=== PATIENT | female | born 1930 | race Caucasian/White ===

== ENCOUNTER → 2017-03-29 | Outpatient (CLI) | payer MEDICARE ==
[2017-03-29 09:45] LABS: AUTOMATED NEUTROPHIL # 2.8 TH/MM3 (1.8-7.7); BASOPHIL % 0.7 % (0.0-2.0); EOSINOPHIL # 0.3 TH/MM3 (0-0.4); EOSINOPHIL % 4.8 % (0.0-4.0); HEMATOCRIT 44.6 % (35.0-46.0); HEMO FLAGS DIFF FINAL; LYMPH % 34.5 % (9.0-44.0); LYMPHOCYTE # 1.9 TH/MM3 (1.0-4.8); MEAN CELL VOLUME 96.5 FL (80.0-100.0); MEAN CORPUSCULAR HEMOGLOBIN 32.4 PG (27.0-34.0); MEAN CORPUSCULAR HGB CONC 33.5 % (32.0-36.0); MONO % 8.6 % (0.0-8.0); NEUT % 51.4 % (16.0-70.0); PLATELET COUNT 144 TH/MM3 (150-450); RED BLOOD COUNT 4.62 MIL/MM3 (4.00-5.30); WHITE BLOOD COUNT 5.4 TH/MM3 (4.0-11.0)
[2017-03-29 10:12] LABS: ANION GAP 7 MEQ/L (5-15); AST (GOT) 18 U/L (15-37); BICARBONATE 27.7 MEQ/L (21.0-32.0); BLOOD UREA NITROGEN 13 MG/DL (7-18); CHLORIDE 106 MEQ/L (98-107); GLOMERULAR FILTRATION RATE 64 ML/MIN (>89); GLUCOSE,FASTING 113 MG/DL (74-99); SODIUM (NA) 141 MEQ/L (136-145)
[2017-03-29 10:24] LABS: ALKALINE PHOSPHATASE 94 U/L (45-117); ALT (GPT) 19 U/L (10-53); HDL CHOLESTEROL 68.2 MG/DL (40.0-60.0); LDL CHOLESTEROL 73 MG/DL (0-99); TOTAL BILIRUBIN ADULT 0.8 MG/DL (0.2-1.0)
== END ==
LOC: PLAB 07:08
PROVIDERS: ATTEND Family Medicine
DX: I48.91 Unspecified atrial fibrillation (principal); E78.5 Hyperlipidemia, unspecified; E03.9 Hypothyroidism, unspecified; I10 Essential (primary) hypertension
CPT/HCPCS: 36415; 80053; 80061; 84443; 85025

== ENCOUNTER → 2017-09-28 | Outpatient (CLI) | payer MEDICARE | LOC: PLAB 14:36 | PROVIDERS: ATTEND Family Medicine | DX: R31.9 Hematuria, unspecified (principal) | CPT/HCPCS: 87086 ==

== ENCOUNTER → 2017-09-29 | Outpatient (CLI) | payer MEDICARE ==
[2017-09-29 10:06] LABS: AUTOMATED NEUTROPHIL # 2.2 TH/MM3 (1.8-7.7); BASOPHIL % 0.8 % (0.0-2.0); EOSINOPHIL # 0.3 TH/MM3 (0-0.4); EOSINOPHIL % 5.7 % (0.0-4.0); HEMATOCRIT 43.6 % (35.0-46.0); HEMOGLOBIN 14.7 GM/DL (11.6-15.3); LYMPH % 39.7 % (9.0-44.0); MEAN CELL VOLUME 95.7 FL (80.0-100.0); MEAN CORPUSCULAR HEMOGLOBIN 32.3 PG (27.0-34.0); MEAN CORPUSCULAR HGB CONC 33.8 % (32.0-36.0); MEAN PLATELET VOLUME 10.9 FL (7.0-11.0); MONO % 9.8 % (0.0-8.0); MONOCYTE # 0.5 TH/MM3 (0-0.9); PLATELET COUNT 155 TH/MM3 (150-450); RED BLOOD COUNT 4.55 MIL/MM3 (4.00-5.30); RED CELL DISTRIBUTION WIDTH 13.6 % (11.6-17.2); WHITE BLOOD COUNT 4.9 TH/MM3 (4.0-11.0)
[2017-09-29 10:11] LABS: ALBUMIN 3.6 GM/DL (3.4-5.0); AST (GOT) 19 U/L (15-37); BICARBONATE 29.9 MEQ/L (21.0-32.0); BLOOD UREA NITROGEN 14 MG/DL (7-18); CHLORIDE 110 MEQ/L (98-107); CHOLESTEROL 185 MG/DL (120-200); GLOMERULAR FILTRATION RATE 59 ML/MIN (>89); GLUCOSE,FASTING 100 MG/DL (74-99); SODIUM (NA) 145 MEQ/L (136-145)
[2017-09-29 10:22] LABS: ALKALINE PHOSPHATASE 87 U/L (45-117); ALT (GPT) 20 U/L (10-53); CHOLESTEROL/ HDL RATIO 2.89 RATIO; HDL CHOLESTEROL 63.8 MG/DL (40.0-60.0); LDL CHOLESTEROL 96 MG/DL (0-99); TOTAL PROTEIN 6.9 GM/DL (6.4-8.2); TRIGLYCERIDES 128 MG/DL (42-150)
== END ==
LOC: PLAB 06:52
PROVIDERS: ATTEND Family Medicine
DX: I10 Essential (primary) hypertension (principal); E03.9 Hypothyroidism, unspecified; E78.2 Mixed hyperlipidemia; I48.91 Unspecified atrial fibrillation
CPT/HCPCS: 36415; 80053; 80061; 84443; 85025

== ENCOUNTER 2017-11-24 01:25 | Inpatient (IN) | payer MEDICARE ==
[~2017-11-24] VITALS: Ht 180.3 cm; Wt 79.0 kg
[2017-11-24] VITALS (10 sets, daily range): BP systolic 110–177; BP diastolic 66–94; PULSE 69–106; RESP 17–18; TEMP 98.2–99.1; O2SAT 92–99
[2017-11-24 02:08] LABS: AUTOMATED NEUTROPHIL # 3.3 TH/MM3 (1.8-7.7); BASOPHIL # 0.1 TH/MM3 (0-0.2); BASOPHIL % 0.8 % (0.0-2.0); EOSINOPHIL # 0.3 TH/MM3 (0-0.4); EOSINOPHIL % 3.8 % (0.0-4.0); HEMATOCRIT 40.6 % (35.0-46.0); HEMOGLOBIN 13.9 GM/DL (11.6-15.3); LYMPH % 41.1 % (9.0-44.0); LYMPHOCYTE # 2.9 TH/MM3 (1.0-4.8); MEAN CORPUSCULAR HEMOGLOBIN 32.5 PG (27.0-34.0); MEAN CORPUSCULAR HGB CONC 34.2 % (32.0-36.0); MEAN PLATELET VOLUME 10.5 FL (7.0-11.0); MONO % 7.4 % (0.0-8.0); MONOCYTE # 0.5 TH/MM3 (0-0.9); NEUT % 46.9 % (16.0-70.0); PLATELET COUNT 130 TH/MM3 (150-450); RED BLOOD COUNT 4.27 MIL/MM3 (4.00-5.30); RED CELL DISTRIBUTION WIDTH 13.3 % (11.6-17.2); WHITE BLOOD COUNT 7.1 TH/MM3 (4.0-11.0)
[2017-11-24 02:17] LABS: INTERNATIONAL NORMALIZED RATIO 2.7 RATIO; PROTHROMBIN TIME - PATIENT 27.6 SEC (9.8-11.6)
[2017-11-24 02:20] LABS: BICARBONATE 26.6 MEQ/L (21.0-32.0); BLOOD UREA NITROGEN 15 MG/DL (7-18); CALCIUM 8.4 MG/DL (8.5-10.1); CHLORIDE 110 MEQ/L (98-107); CREATININE 0.87 MG/DL (0.50-1.00); GLOMERULAR FILTRATION RATE 62 ML/MIN (>89); GLUCOSE,RANDOM 120 MG/DL (74-106); SODIUM (NA) 145 MEQ/L (136-145)
--- NOTE | 2017-11-24 02:21 | RADRPT ---
EXAM DATE: 11/24/2017 2:14 AM EDT AGE/SEX: 87 years / Female INDICATIONS: Fall in kitchen landed on left hip. CLINICAL DATA: This is the patient's initial encounter. Patient reports that signs and symptoms have been present for 1 day and indicates a pain score of 10/10. MEDICAL/SURGICAL HISTORY: None. None. COMPARISON: No prior exams available for comparison. FINDINGS: 4 views of the left hip and pelvis. Impacted left femoral neck fracture. Hip joint alignment within n ormal limits. Mild osteoarthritic findings of the hips. CONCLUSION: Impacted left femoral neck fracture. Electronically signed by: Noe Gibson MD 11/24/2017 2:20 AM EDT
--- NOTE | 2017-11-24 02:21 | PD ---
HPI Chief Complaint: Fall Time Seen by Provider: 01:40 Travel History International Travel<30 days: No Contact w/Intl Traveler<30days: No Traveled to known affect area: No History of Present Illness HPI The patient is an 87 year old female who presents to the [facility] emergency department with a history of left hip pain that began after the patient slipped and fell returning from the bathroom. She reports that she slipped on the floor. She reports that she landed on her buttock area. She reports that she was unable to get up and have left hip pain. She denies hitting her head or losing consciousness. She is on Coumadin for an irregular heartbeat. She denies having any numbness or tingling to her extremities. She denies having any weakness of her extremities. On review of systems otherwise, the patient denies having any fevers, cough or congestion, neck pain, chest pain , shortness of breath, abdominal pain, vomiting, diarrhea, urinary symptoms, or neurologic symptoms. The patient denies having any other injuries related to the fall [facility] Past Medical History Narrative Medical The patient's past medical history is significant for atrial fibrillation, hypothyroid disorder, hypertension, diminished hearing, dyslipidemia. Atrial Fibrillation: Yes Diminished Hearing: Yes Hypertension: Yes Thyroid Disease: Yes Triglycerides - High: Yes Past Surgical History Narrative Surgical The patient's past surgical history is significant for a hysterectomy and tonsillectomy. Social History Alcohol Use: No Tobacco Use: No Substance Use: No Allergies-Medications (Allergen,Severity, Reaction): Coded Allergies: Sulfa (Sulfonamide Antibiotics) (Verified Allergy, Severe, 11/24/17) Reported Meds & Prescriptions Reported Meds & Active Scripts Active Reported Lovastatin 40 Mg Tab 40 Mg PO DAILY Levothyroxine (Levothyroxine Sodium) 100 Mcg Tab 100 Mcg PO DAILY Coumadin (Warfarin) 2.5 Mg Tab 2.5 Mg PO DAILY Metoprolol Tartrate 25 Mg Tab 25 Mg PO BID Review of Systems Except as stated in HPI: all other systems reviewed are Neg General / Constitutional: No: Fever Eyes: No: Visual changes HENT: No: Headaches Cardiovascular: No: Chest Pain or Discomfort Respiratory: No: Shortness of Breath Gastrointestinal: No: Abdominal Pain Genitourinary: No: Dysuria Musculoskeletal: Positive: Arthralgias, Limited ROM, Pain Skin: No Rash Neurologic: No: Weakness Psychiatric: No: Depression Endocrine: No: Polydipsia Hematologic/Lymphatic: No: Easy Bruising Physical Exam Narrative General: The patient is a well-developed well-nourished female in no acute distress. Head and Neck exam: Head is normocephalic atraumatic. Eyes: EOMI, pupils are equal round and reactive to light. Nose: Midline septum with pink mucous membranes Mouth: Dentition unremarkable. Moist mucus membranes. Posterior oropharynx is not erythematous. No tonsillar hypertrophy. Uvula midline. Airway patent. Neck: No palpable lymphadenopathy. No nuchal rigidity. No thyromegaly. Cardiovascular: Irregularly irregular with rate control in the 80s consistent with her history of atrial fibrillation without murmurs, gallops, or rubs. Lungs: Clear to auscultation bilaterally. No wheezes, rhonchi, or rales. Abdomen: Soft, without tenderness to palpation in all 4 quadrants of the abdomen. No guarding, rebound, or rigidity. Normal bowel sounds are audible. No tenderness on palpation of McBurney's point. Extremities: No clubbing, cyanosis, or edema. 2+ pulses in all 4 extremities. The area of interest is the left hip. The patient has external rotation and slight shortening noted. The patient has pain with any attempts at flexion or rotation of the left hip. The patient has no other extremity pain on palpation or with active range of motion. The patient has no other crepitus or deformity. Back: No spinous process tenderness to palpation. No costovertebral angle tenderness to palpation. Neurologic Exam: Grossly nonfocal. Skin Exam: No rash noted. Intact skin that is warm and dry. Data Data Last Documented VS Vital Signs Date Time Temp Pulse Resp B/P (MAP) Pulse Ox O2 Delivery O2 Flow Rate FiO2 11/24/17 02:02 Room Air 11/24/17 01:32 98.2 69 18 177/66 (103) Orders Orders Electrocardiogram (11/24/17 01:43) Complete Blood Count With Diff (11/24/17 01:43) Basic Metabolic Panel (Bmp) (11/24/17 01:43) Creatine Kinase (Cpk) (11/24/17 01:43) Ckmb (Isoenzyme) Profile (11/24/17 01:43) Troponin I (11/24/17 01:43) Prothrombin Time / Inr (Pt) (11/24/17 01:43) Act Partial Throm Time (Ptt) (11/24/17 01:43) Chest, Single Ap (11/24/17 01:43) Ct Brain W/O Iv Contrast(Rout) (11/24/17 01:43) Iv Access Insert/Monitor (11/24/17 01:43) Ecg Monitoring (11/24/17 01:43) Oximetry (11/24/17 01:43) Ct Cerv Spine W/O Contrast (11/24/17 01:43) Hip, Uni(Ap&Lat) W Ap Pelvis (11/24/17 ) Consult Orthopedic (11/24/17 ) Admit To Inpatient (11/24/17 ) Vital Signs (Adult) Q4H (11/24/17 02:59) Activity Bed Rest (11/24/17 02:59) Diet Npo (11/24/17 Breakfast) Sodium Chlor 0.9% 1000 Ml Inj (Ns 1000 M (11/24/17 02:59) Sodium Chloride 0.9% Flush (Ns Flush) (11/24/17 03:00) Sodium Chloride 0.9% Flush (Ns Flush) (11/24/17 09:00) Acetaminophen (Tylenol) (11/24/17 03:00) Basic Metabolic Panel (Bmp) (11/25/17 06:00) Complete Blood Count With Diff (11/25/17 06:00) Pt Request For Service (11/24/17 02:59) Naloxone Inj (Narcan Inj) (11/24/17 03:00) Docusate Sodium-Senna (Anne-Colace) (11/24/17 09:00) Magnesium Hydroxide Liq (Milk Of Magnesi (11/24/17 03:00) Sennosides (Senokot) (11/24/17 03:00) Bisacodyl Supp (Dulcolax Supp) (11/24/17 03:00) Lactulose Liq (Lactulose Liq) (11/24/17 03:00) Inpatient Certification (11/24/17 ) Labs Laboratory Tests Test 11/24/17 01:54 White Blood Count 7.1 TH/MM3 Red Blood Count 4.27 MIL/MM3 Hemoglobin 13.9 GM/DL Hematocrit 40.6 % Mean Corpuscular Volume 95.0 FL Mean Corpuscular Hemoglobin 32.5 PG Mean Corpuscular Hemoglobin Concent 34.2 % Red Cell Distribution Width 13.3 % Platelet Count 130 TH/MM3 Mean Platelet Volume 10.5 FL Neutrophils (%) (Auto) 46.9 % Lymphocytes (%) (Auto) 41.1 % Monocytes (%) (Auto) 7.4 % Eosinophils (%) (Auto) 3.8 % Basophils (%) (Auto) 0.8 % Neutrophils # (Auto) 3.3 TH/MM3 Lymphocytes # (Auto) 2.9 TH/MM3 Monocytes # (Auto) 0.5 TH/MM3 Eosinophils # (Auto) 0.3 TH/MM3 Basophils # (Auto) 0.1 TH/MM3 CBC Comment DIFF FINAL Differential Comment Prothrombin Time 27.6 SEC Prothromb Time International Ratio 2.7 RATIO Activated Partial Thromboplast Time 31.0 SEC Blood Urea Nitrogen 15 MG/DL Creatinine 0.87 MG/DL Random Glucose 120 MG/DL Calcium Level 8.4 MG/DL Sodium Level 145 MEQ/L Potassium Level 3.8 MEQ/L Chloride Level 110 MEQ/L Carbon Dioxide Level 26.6 MEQ/L Anion Gap 8 MEQ/L Estimat Glomerular Filtration Rate 62 ML/MIN Total Creatine Kinase 61 U/L Troponin I LESS THAN 0.02 NG/ML MDM Medical Decision Making Medical Screen Exam Complete: Yes Emergency Medical Condition: Yes Medical Record Reviewed: Yes Differential Diagnosis Left hip fracture, versus dislocation, versus contusion Narrative Course During the course of the patient's emergency department visit, the patient's history, examination, and differential diagnosis were reviewed with the patient. The patient was placed on a cardiac rehabilitation program director with oximetry and frequent blood pressure monitoring. The patient had IV access obtained and blood work sent for analysis. The patient had an EKG done on arrival. The patient's EKG shows atrial fibrillation heart rate of 78, QRS duration 91 ms, QTC [address] segment elevation. The patient was initially provided morphine for pain, Reglan for nausea. The patient's laboratory studies were reviewed and remarkable for 11/24/17 01:54 Calcium Level 8.4 L The patient's INR is 2.7. The patient is anticoagulated related to a history of chronic atrial fibrillation. Radiology studies were reviewed and remarkable for Last Impressions Head CT 6/13/18 0143 Signed Impressions: CONCLUSION: 1. No acute intracranial findings. 2. Diffuse atrophy and chronic ischemic change. Chest X-Ray 11/24/17142 Signed Impressions: CONCLUSION: No acute cardiopulmonary disease identified. Cervical Spine CT 11/24/17142 Signed Impressions: CONCLUSION: 1. No evidence of fracture. 2. Prominent multilevel degenerative findings. Hip and Pelvis X-Ray 11/24/17 0000 Signed Impressions: CONCLUSION: Impacted left femoral neck fracture. The patient will be admitted to the hospital for a slip and a fall with resultant impacted left femoral neck fracture. The patient's results were discussed with the patient, including the plan of care. I explained that further testing and/ or monitoring is indicated based on the patient's history, examination, and/ or laboratory findings. Therefore, I recommended admission for additional evaluation. The patient expressed understanding and was agreeable with this plan. The patient was admitted to the hospital in stable condition and sent to a bed under the care of [facility]. Physician Communication Physician Communication The patient's case including history, pertinent physical examination findings, and laboratory studies were discussed with Dr. Mccloud. It was [facility] Diagnosis Primary Impression: Femoral neck fracture Qualified Codes: S72.002A - Fracture of unspecified part of neck of left femur , initial encounter for closed fracture Admitting Information Admitting Physician Requests: Admit Yamilka Lombardo MD Nov 24, 2017 02:21
[2017-11-24 02:23] LABS: TROPONIN I LESS THAN 0.02 NG/ML (0.02-0.05)
--- NOTE | 2017-11-24 02:27 | RADRPT ---
EXAM DATE: 11/24/2017 2:15 AM EDT AGE/SEX: 87 years / Female INDICATIONS: Fall, evaluate for pneumonia, pneumothorax and or communicable disease. CLINICAL DATA: This is the patient's initial encounter. Patient reports that signs and symptoms have been present for 1 day and indicates a pain score of 10/10. MEDICAL/SURGICAL HISTORY: None. None. COMPARISON: No prior exams available for comparison. FINDINGS: Single AP view of the chest. The lungs are clear. Cardiomediastinal silhouette within nor mal limits. No evidence of pleural effusion or pneumothorax. CONCLUSION: No acute cardiopulmonary disease identified. Electronically signed by: Noe Gibson MD 11/24/2017 2:26 AM EDT
--- NOTE | 2017-11-24 02:34 | RADRPT ---
EXAM DATE: 11/24/2017 2:23 AM EDT AGE/SEX: 87 years / Female INDICATIONS: Trauma; fall. CLINICAL DATA: This is the patient's initial encounter. Patient reports that signs and symptoms have been present for 1 day and indicates a pain score of 4/10. MEDICAL/SURGICAL HISTORY: None. None. RADIATION DOSE: 21.05 CTDI (mGy) COMPARISON: No prior exams available for comparison. TECHNIQUE: Contiguous axial images were obtained using helical multirow detector technique. The vol umetric data was post-processed with multiplanar reconstruction in oblique axial, sagittal, and coron al planes. Using automated exposure control and adjustment of the mA and/or kV according to patient s ize, radiation dose was kept as low as reasonably achievable to obtain optimal diagnostic quality aries ges. FINDINGS: Vertebrae: Normal vertebral body height. Alignment: Normal. No subluxation. C2-3: Broad-based disc osteophyte complex and prominent left-sided facet arthrosis. Mild left neural foraminal narrowing. Central canal diameter within normal limits. C3-4: Broad-based disc osteophyte complex and bilateral facet arthrosis. Moderate left neural forami nal narrowing. Minimal central canal narrowing. C4-5: Broad-based disc osteophyte complex and bilateral facet arthrosis. Moderate right and mild lef t neural foraminal narrowing. Mild to moderate central canal narrowing. C5-6: Broad-based disc osteophyte complex and bilateral facet arthrosis. Moderate bilateral neural f oraminal narrowing. Mild central canal narrowing. C6-7: Broad-based disc osteophyte complex and bilateral facet arthrosis. Mild bilateral neural ariana inal narrowing. Central canal diameter within normal limits. C7-T1: Central canal diameter within normal limits. Neural foraminal diameters within normal limits. CONCLUSION: 1. No evidence of fracture. 2. Prominent multilevel degenerative findings. Electronically signed by: Noe Gibson MD 11/24/2017 2:33 AM EDT
--- NOTE | 2017-11-24 02:37 | RADRPT ---
EXAM DATE: 11/24/2017 2:15 AM EDT AGE/SEX: 87 years / Female INDICATIONS: Trauma; fall. CLINICAL DATA: This is the patient's initial encounter. Patient reports that signs and symptoms have been present for 1 day and indicates a pain score of 2/10. MEDICAL/SURGICAL HISTORY: None. None. RADIATION DOSE: 56.35 CTDI (mGy) COMPARISON: No prior exams available for comparison. TECHNIQUE: CT of the head without contrast. Using automated exposure control and adjustment of the mA and/or kV according to patient size, radiation dose was kept as low as reasonably achievable to ob tain optimal diagnostic quality images. FINDINGS: Cerebrum: The ventricles, sulci, and cisterns are diffusely prominent indicating diffuse atrophy. Ch ronic small vessel white matter ischemic change also noted. No evidence of midline shift, mass lesio n, hemorrhage or acute infarction. No extraaxial fluid collections are seen. Posterior Fossa: The cerebellum and brainstem are intact. The 4th ventricle is midline. The cerebe llopontine angle is unremarkable. Extracranial: The visualized portion of the orbits is intact. Skull: The calvaria is intact. No evidence of skull fracture. CONCLUSION: 1. No acute intracranial findings. 2. Diffuse atrophy and chronic ischemic change. Electronically signed by: Noe Gibson MD 11/24/2017 2:36 AM EDT
[2017-11-24] MEDS ORDERED: SODIUM CHLORIDE 0.9% FLUSH 10 ML FLUSH IV FLUSH PRN (03:00)
[2017-11-24] MEDS ORDERED: LACTULOSE SYRUP 20 GM/30 ML CUP PO PRN (03:00)
[2017-11-24] MEDS ORDERED: SENNOSIDES 8.6 MG TAB PO PRN (03:00)
[2017-11-24] MEDS ORDERED: MAGNESIUM HYDROXIDE SUSP 30 ML CUP PO PRN (03:00)
[2017-11-24] MEDS ORDERED: NALOXONE HCL 0.4 MG/ML AMP IV PUSH PRN (03:00)
[2017-11-24] MEDS ORDERED: ACETAMINOPHEN 325 MG TAB PO PRN (03:00)
[2017-11-24] MEDS ORDERED: BISACODYL 10 MG SUPP RECTAL PRN (03:00)
[2017-11-24] MEDS ORDERED: COUM2.5T PO (03:04)
[2017-11-24] MEDS ORDERED: METO25TA3 PO (03:04)
[2017-11-24] MEDS ORDERED: LEVO100T5 PO (03:04)
[2017-11-24] MEDS ORDERED: LOVA40TA PO (03:04)
[2017-11-24] MEDS ORDERED: MORPHINE SULFATE 4 MG/ML INJ IV PUSH ONE (03:15)
[2017-11-24] MEDS ORDERED: METOCLOPRAMIDE HCL 10 MG/2 ML VIAL IV PUSH ONE (03:15)
[2017-11-24] MEDS: SODIUM CHLOR 0.9% 1000 ML INJ 1,000 ML IV SCH ×2 (03:52→17:29)
[2017-11-24] MEDS ORDERED: SODIUM CHLOR 0.9% 250 ML INJ 250 ML IV ONE (07:45)
--- NOTE | 2017-11-24 07:58 | HHI.HP ---
[facility] Service [facility] Primary Care Physician Rosemary Ellis MD Admission Diagnosis Left hip fracture s/p slip and fall Diagnoses: Chief Complaint: Left hip fracture, status post fall Travel History International Travel<30 Days: No Contact w/Intl Traveler <30 Da: No Traveled to Known Affected Are: No History of Present Illness Patient is an 87-year-old female with past medical history of atrial fibrillation on Coumadin, hypothyroidism, HTN, HLD who came into the hospital status post slip and fall coming out of the bathroom. Patient denies hitting her head, or any loss of consciousness. Patient found to have impacted left femoral neck fracture on the x-ray. Patient is due for OR procedure, however her INR is elevated at 2.7. Patient seen and examined today. Reports she is doing well. States she has no pain or discomfort. She does not even know that she had a fracture. States that there was something wrong with her blood that she needs to be rescheduled for the procedure tomorrow. Denies SOB/ dyspnea. Denies chest pain, palpitations, headaches, dizziness. Denies fevers, chills, n/v/d. Denies hematuria, dysuria. Review of Systems ROS Limitations: Poor Historian Except as stated in HPI: all other systems reviewed are Neg Past Family Social History Past Medical History Atrial fibrillation on Coumadin Hypothyroidism HTN HLD Past Surgical History Hysterectomy Tonsillectomy Reported Medications Reported Meds & Active Scripts Active Reported Lovastatin 40 Mg Tab 40 Mg PO DAILY Levothyroxine (Levothyroxine Sodium) 100 Mcg Tab 100 Mcg PO DAILY Coumadin (Warfarin) 2.5 Mg Tab 2.5 Mg PO DAILY Metoprolol Tartrate 25 Mg Tab 25 Mg PO BID Allergies: Coded Allergies: Sulfa (Sulfonamide Antibiotics) (Verified Allergy, Severe, 11/24/17) Active Ordered Medications Current Medications Medications (Trade) Dose Ordered Sig/Louisa Route Start Time Stop Time Status Last Admin Sodium Chloride 1,000 ml @ 80 mls/hr [id number] IV 11/24/17 02:59 11/24/17 03:52 (NS Flush) 2 ml UNSCH PRN IV FLUSH 11/24/17 03:00 (NS Flush) 2 ml BID IV FLUSH 11/24/17 09:00 (Tylenol) 650 mg Q4H PRN PO 11/24/17 03:00 (Zofran Odt) 4 mg Q6H PRN PO 11/24/17 03:00 (Narcan Inj) 0.4 mg UNSCH PRN IV PUSH 11/24/17 03:00 (Nane-Colace) 1 tab BID PO 11/24/17 09:00 (Milk Of Magnesia Liq) 30 ml Q12H PRN PO 11/24/17 03:00 (Senokot) 17.2 mg Q12H PRN PO 11/24/17 03:00 (Dulcolax Supp) 10 mg DAILY PRN RECTAL 11/24/17 03:00 (Lactulose Liq) 30 ml DAILY PRN PO 11/24/17 03:00 Sodium Chloride 250 ml @ 15 mls/hr ONCE ONCE IV 11/24/17 07:45 11/25/17 00:24 Family History States that mother and father really have no medical problems that she know of. Social History Lives with 2 daughters and dog. Denies alcohol use Denies tobacco use Denies illicit drug use Physical Exam Vital Signs Vital Signs Date Time Temp Pulse Resp B/P (MAP) Pulse Ox O2 Delivery O2 Flow Rate FiO2 11/24/17 05:51 98.7 84 17 125/82 (96) 96 11/24/17 02:02 Room Air 11/24/17 01:32 98.2 69 18 177/66 (103) Physical Exam GENERAL: This is a well-nourished, well-developed patient, in no apparent distress. SKIN: Warm and dry. HEAD: Normocephalic. EYES: Pupils equal round and reactive. Extraocular motions intact. No scleral icterus. No injection or drainage. ENT: Nose without bleeding. Throat without erythema. Uvula midline. Airway patent. NECK: Trachea midline. No JVD . CARDIOVASCULAR: Irregular rate and rhythm without murmurs, gallops, or rubs. RESPIRATORY: Clear to auscultation. Breath sounds equal bilaterally. No wheezes , rales, or rhonchi. GASTROINTESTINAL: Abdomen soft, non-tender, nondistended. Bowel sounds active 4 MUSCULOSKELETAL: Extremities without clubbing, cyanosis. Left hip trace edema. Palpable DP pulses bilaterally NEUROLOGICAL: Awake and alert. Cranial nerves II through XII intact. Motor and sensory grossly within normal limits. Normal speech. Laboratory Laboratory Tests Test 11/24/17 01:54 White Blood Count 7.1 Red Blood Count 4.27 Hemoglobin 13.9 Hematocrit 40.6 Mean Corpuscular Volume 95.0 Mean Corpuscular Hemoglobin 32.5 Mean Corpuscular Hemoglobin Concent 34.2 Red Cell Distribution Width 13.3 Platelet Count 130 Mean Platelet Volume 10.5 Neutrophils (%) (Auto) 46.9 Lymphocytes (%) (Auto) 41.1 Monocytes (%) (Auto) 7.4 Eosinophils (%) (Auto) 3.8 Basophils (%) (Auto) 0.8 Neutrophils # (Auto) 3.3 Lymphocytes # (Auto) 2.9 Monocytes # (Auto) 0.5 Eosinophils # (Auto) 0.3 Basophils # (Auto) 0.1 CBC Comment DIFF FINAL Differential Comment Prothrombin Time 27.6 Prothromb Time International Ratio 2.7 Activated Partial Thromboplast Time 31.0 Blood Urea Nitrogen 15 Creatinine 0.87 Random Glucose 120 Calcium Level 8.4 Sodium Level 145 Potassium Level 3.8 Chloride Level 110 Carbon Dioxide Level 26.6 Anion Gap 8 Estimat Glomerular Filtration Rate 62 Total Creatine Kinase 61 Troponin I LESS THAN 0.02 Result Diagram: 11/24/1715311/24/17153 Imaging Last Impressions Head CT 11/24/17142 Signed Impressions: CONCLUSION: 1. No acute intracranial findings. 2. Diffuse atrophy and chronic ischemic change. Chest X-Ray 11/24/17142 Signed Impressions: CONCLUSION: No acute cardiopulmonary disease identified. Cervical Spine CT 11/24/17142 Signed Impressions: CONCLUSION: 1. No evidence of fracture. 2. Prominent multilevel degenerative findings. Hip and Pelvis X-Ray 11/24/17 0000 Signed Impressions: CONCLUSION: Impacted left femoral neck fracture. Caprini VTE Risk Assessment Caprini VTE Risk Assessment: Mod/High Risk (score >= 2) Caprini Risk Assessment Model Point Value = 1 Point Value = 2 Point Value = 3 Point Value = 5 Age 41-60 Minor surgery BMI > 25 kg/m2 Swollen legs Varicose veins or History of unexplained or recurrent spontaneous Oral contraceptives or hormone replacement Sepsis (< 1 month) Serious lung disease, including pneumonia (< 1 month) Abnormal pulmonary function Acute myocardial infarction Congestive heart failure (< 1 month) History of inflammatory bowel disease Medical patient at bed rest Age 61-74 Arthroscopic surgery Major open surgery (> 45 min) Laparoscopic surgery (> 45 min) Malignancy Confined to bed (> 72 hours) Immobilizing plaster cast Central venous access Age >= 75 History of VTE Family history of VTE Factor V Leiden Prothrombin [id number] Lupus anticoagulant Anticardiolipin antibodies Elevated serum homocysteine Heparin-induced thrombocytopenia Other congenital or acquired thrombophilia Stroke (< 1 month) Elective arthroplasty Hip, pelvis, or leg fracture Acute spinal cord injury (< 1 month) Prophylaxis Regimen Total Risk Factor Score Risk Level Prophylaxis Regimen 0-1 Low Early ambulation 2 Moderate Order ONE of the following: *Sequential Compression Device (SCD) *Heparin 5000 units SQ BID 3-4 Higher Order ONE of the following medications: *Heparin 5000 units SQ TID *Enoxaparin/Lovenox 40 mg SQ daily (WT < 150 kg, CrCl > 30 mL/min) *Enoxaparin/Lovenox 30 mg SQ daily (WT < 150 kg, CrCl > 10-29 mL/min) *Enoxaparin/Lovenox 30 mg SQ BID (WT < 150 kg, CrCl > 30 mL/min) AND/OR *Sequential Compression Device (SCD) 5 or more Highest Order ONE of the following medications: *Heparin 5000 units SQ TID (Preferred with Epidurals) *Enoxaparin/Lovenox 40 mg SQ daily (WT < 150 kg, CrCl > 30 mL/min) *Enoxaparin/Lovenox 30 mg SQ daily (WT < 150 kg, CrCl > 10-29 mL/min) *Enoxaparin/Lovenox 30 mg SQ BID (WT < 150 kg, CrCl > 30 mL/min) AND *Sequential Compression Device (SCD) Assessment and Plan Problem List: (1) Fracture of left femur ICD Code: S72.92XA - Unspecified fracture of left femur, initial encounter for closed fracture Status: Acute (2) HTN (hypertension) ICD Code: I10 - Essential (primary) hypertension (3) Hypothyroidism ICD Code: E03.9 - Hypothyroidism, unspecified Assessment and Plan Patient is an 87-year-old female with past medical history of atrial fibrillation on Coumadin, hypothyroidism, HTN, HLD who came into the hospital status post slip and fall coming out of the bathroom. Status post slip and fall Left femoral neck fracture -Plan for orthopedic intervention. Orthopedic consult, held OR procedure INR elevated 2.7 -Head CT showed no acute intracranial findings, diffuse atrophy and chronic change -Cervical spine CT negative for fracture, prominent multilevel degenerative finding -Hold off on Coumadin for now. Repeat INR tomorrow. FFP transfusion to keep INR down. -Pain management for now with bowel regimen -PT evaluation postop -N.p.o. after mid HTN HLD -Continue home medication with hold parameters, metoprolol, lovastatin Hypothyroidism -Continue levothyroxine DVT prop SCDs Code Status Full Code Discussed Condition With Patient, nursing Physician Certification 2 Midnight Certification Type: Continued Stay Order for Inpatient Services The services are ordered in accordance with Medicare regulations or non- Medicare payer requirements, as applicable. In the case of services not specified as inpatient-only, they are appropriately provided as inpatient services in accordance with the 2-midnight benchmark. Estimated LOS (days): 2 days is the estimated time the patient will need to remain in the hospital, assuming treatment plan goals are met and no additional complications. Post-Hospital Plan: Not yet determined Giovanna Barber Nov 24, 2017 07:58
[2017-11-24] MEDS ORDERED: ACETAMINOPHEN/HYDROcodone 325 MG/5 MG TAB PO PRN (08:15)
[2017-11-24] MEDS ORDERED: MORPHINE SULFATE 4 MG/ML INJ IM PRN (08:15)
[2017-11-24] MEDS: PRAVASTATIN SOD 40 MG TAB PO SCH (08:40)
[2017-11-24] MEDS: METOPROLOL TARTRATE 25 MG TAB PO SCH ×2 (08:40→20:57)
[2017-11-24] MEDS: SODIUM CHLORIDE 0.9% FLUSH 10 ML FLUSH IV FLUSH SCH ×2 (08:40→20:57)
[2017-11-24] MEDS: DOCUSATE SODIUM 50 MG/SENNA 8.6 MG TAB PO SCH ×2 (08:41→20:57)
[2017-11-24] MEDS: LEVOTHYROXINE SODIUM 100 MCG TAB PO SCH (08:42)
--- NOTE | 2017-11-24 09:04 | EKG ---
Date Performed: 11/24/2017 Time Performed: 00:36:05 PTAGE: 87 years EKG: ATRIAL FIBRILLATION MODERATE ST DEPRESSION ABNORMAL ECG NO PREVIOUS TRACING DOCTOR: Frank Garza Interpretating Date/Time 11/24/2017 09:02:19
--- NOTE | 2017-11-24 09:21 | MB ---
cc: Manuel Ribera MD DATE: 11/24/2017 REASON FOR CONSULTATION: Left femoral neck fracture. CONSULTING PHYSICIAN: Dr. Howard. HISTORY OF PRESENT ILLNESS: Dipti is an 87-year-old female. She had a fall. She states that she was coming out of the bathroom. She slipped and fell. She landed on her left side. She had immediate left hip pain. She presented to the emergency room where x-rays revealed a left hip fracture. She has minimal pain at rest. She has increased pain with movement. Her only complaint is left pain. She denies dizziness, syncope or loss of consciousness. She denies loss of consciousness. PAST MEDICAL HISTORY: Illnesses, atrial fibrillation, hypothyroidism, hypertension, high cholesterol. PAST SURGICAL HISTORY: Hysterectomy, tonsillectomy. MEDICATIONS: Include: 1. Levothyroxine. 2. Coumadin. 3. Metoprolol. 4. Lovastatin. ALLERGIES: SULFA. SOCIAL HISTORY: The patient lives with 2 daughters. She denies alcohol, tobacco or drug use. FAMILY HISTORY: Noncontributory. She denies any known familial medical problems. REVIEW OF SYSTEMS: The patient denies headache, visual changes, neck pain, chest pain, shortness of breath, abdominal pain, nausea, vomiting, recent weight loss, fever, chills or numbness or tingling of extremities. She complains of left hip pain. Pain is worse with movement. LABORATORY DATA: The patient has a white blood cell count of 7.1, hematocrit of 40.6, platelet count of 130, INR 2.7, potassium of 3.8. IMAGING: X-rays of the left hip were reviewed. X-rays reveal a displaced left femoral neck fracture. PHYSICAL EXAMINATION: GENERAL: The patient is a well-developed, well-nourished, 87-year-old female. She answers questions appropriately. She is hard of hearing. She is in no acute distress. VITAL SIGNS: Temperature 99.0, pulse 97, respirations 18, blood pressure 118/69, O2 saturations 95% on room air. HEAD: The patient is normocephalic. EYES: Pupils are equal. NECK: Soft, nontender. The trachea is midline. ABDOMEN: Soft, nontender, nondistended. EXTREMITIES: Examination of bilateral upper extremities reveals no pain with shoulder, elbow and wrist motion. She has intact sensation in all fingers. She has good cap refill in all fingers. Skin is intact. Radial pulses are palpable. Examination of the right leg reveals no pain with hip, knee or ankle motion. SKIN: Intact. Dorsalis pedis pulses palpable. Sensation is intact. Examination of left leg reveals pain with hip motion. She has minimal tenderness over her trochanter. Calf and thigh compartments are soft. She has no tenderness around her knee. Her knee is stable to varus and valgus stress. She has intact sensation in the left foot. Dorsalis pedis pulses palpable. She has good capillary refill in her foot. Sensation is intact in the left foot. IMPRESSION: 1. Atrial fibrillation. 2. Anticoagulation with Coumadin with elevated INR. 3. Osteoporosis. 4. Hypertension. 5. Displaced left femoral neck fracture. PLAN: Treatment options were discussed with the patient and her daughter. At this point, she will need a left hip hemiarthroplasty. I originally had planned for the patient to go to surgery today. However, with her elevated INR, she will need that corrected prior to surgery. I will order 2 units of fresh frozen plasma to help correct her INR. She may have surgery tomorrow if she is medically cleared and INR is closer to normal. If surgery is tomorrow, it will likely be Dr. Harrison Horowitz performing the surgery. I discussed this with the patient and her daughter as well. I will also start her on calcium and vitamin D. Physical therapy will be consulted after surgery for gait training. The risks of surgery including bleeding, infection, injuries to arteries, nerves and blood vessels, leg length discrepancy, hip dislocation, fracture of femur, as well as medical complications including blood clot, stroke, heart attack, and were discussed. All questions were answered. Informed consent was obtained. A mid-level provider in my office, nurse practitioner or PA, may see this patient on a follow-up basis and continue to implement the objective of this plan including: Starting or adjusting medications, injections of muscle, tendon, bursa or joints, cast application, orthotic or brace application, physical therapy, further radiographic studies including x-ray, MRI, CT, ultrasounds or bone scan, vascular studies, neurologic studies, or other specialist consultations, and proceeding with surgical management as appropriate. Manuel A. Ribera, MD GARCIA/AKIL , 08:58 AM , 09:19 AM
[2017-11-24] MEDS: ONDANSETRON ODT 4 MG TAB PO PRN (11:07)
[2017-11-25 00:01] VITALS: BP 136/79; PULSE 87; RESP 18; TEMP 99; O2SAT 96
[2017-11-25] MEDS: SODIUM CHLOR 0.9% 1000 ML INJ 1,000 ML IV SCH ×2 (03:59→20:49)
[2017-11-25 04:43] LABS: AUTOMATED NEUTROPHIL # 6.4 TH/MM3 (1.8-7.7); BASOPHIL % 0.2 % (0.0-2.0); EOSINOPHIL # 0.2 TH/MM3 (0-0.4); EOSINOPHIL % 2.7 % (0.0-4.0); HEMATOCRIT 36.6 % (35.0-46.0); HEMOGLOBIN 12.5 GM/DL (11.6-15.3); LYMPH % 15.8 % (9.0-44.0); LYMPHOCYTE # 1.4 TH/MM3 (1.0-4.8); MEAN CELL VOLUME 94.4 FL (80.0-100.0); MEAN CORPUSCULAR HEMOGLOBIN 32.3 PG (27.0-34.0); MEAN CORPUSCULAR HGB CONC 34.3 % (32.0-36.0); MEAN PLATELET VOLUME 10.7 FL (7.0-11.0); MONO % 8.7 % (0.0-8.0); MONOCYTE # 0.8 TH/MM3 (0-0.9); NEUT % 72.6 % (16.0-70.0); PLATELET COUNT 113 TH/MM3 (150-450); RED BLOOD COUNT 3.88 MIL/MM3 (4.00-5.30); RED CELL DISTRIBUTION WIDTH 13.5 % (11.6-17.2); WHITE BLOOD COUNT 8.8 TH/MM3 (4.0-11.0)
[2017-11-25] MEDS: LEVOTHYROXINE SODIUM 100 MCG TAB PO SCH (04:44)
[2017-11-25 04:49] LABS: INTERNATIONAL NORMALIZED RATIO 1.4 RATIO; PROTHROMBIN TIME - PATIENT 14.1 SEC (9.8-11.6)
[2017-11-25 05:12] LABS: CALCIUM 8.5 MG/DL (8.5-10.1); CREATININE 0.79 MG/DL (0.50-1.00)
--- NOTE | 2017-11-25 06:24 | PD.ORT.PN ---
Subjective Subjective Remarks Previous consult dictated by Dr. Ribera. Surgery delayed due to elevated PT INR. Status post FFP. INR 1.[address] Ribera out of town Objective Vitals Vital Signs Date Time Temp Pulse Resp B/P (MAP) Pulse Ox O2 Delivery O2 Flow Rate FiO2 11/25/17 00:01 99.0 87 18 136/79 (98) 96 11/24/17 20:00 99.1 93 18 148/79 (102) 96 11/24/17 16:00 98.7 90 18 145/80 (101) 96 11/24/17 14:30 99.1 94 153/85 95 11/24/17 14:30 17 11/24/17 14:15 98.2 86 152/87 92 11/24/17 14:00 98.4 106 18 152/94 97 11/24/17 13:20 98.4 106 18 152/94 (113) 97 11/24/17 13:15 Room Air 11/24/17 11:14 98.2 71 18 110/70 (83) 99 11/24/17 08:21 99.0 97 18 118/69 (85) 95 I/O 11/24/17 11/24/17 11/24/17 11/25/17 11/25/17 11/25/17 07:00 15:00 23:00 07:00 15:00 23:00 Intake Total 579 ml 331 ml 240 ml Output Total 200 ml 400 ml 860 ml Balance 379 ml -69 ml -620 ml Intake Oral 250 ml 240 ml FFP 317 ml 329 ml Blood Product IV Normal Saline Flush 12 ml 2 ml Output Urine Total 200 ml 400 ml 860 ml # Bowel Movements 2 Result Diagram: 11/25/17 0345 11/25/17 0345 Other Results Laboratory Tests Test 11/25/17 03:45 Prothromb Time International Ratio 1.4 RATIO Prothrombin Time 14.1 SEC (9.8-11.6) Objective Remarks Comfortable in bed. Left leg externally rotated. Mild swelling left hip. No calf tenderness. Sensation normal Assessment & Plan Assessment and Plan Fracture left femoral neck, subcapital, displaced. PLAN: Surgery: Left hip bipolar hemiarthroplasty. Consent: There are risks with surgery including infection, bleeding, loss of motion, dislocation, failure of bone, failure of hardware, deep venous thrombosis. The patient understands these issues and wishes to proceed forward with surgery as outlined above. Surgery today if arrangements can be made Harrison Horowitz MD Nov 25, 2017 06:24
[2017-11-25] MEDS: PRAVASTATIN SOD 40 MG TAB PO SCH (07:23)
[2017-11-25] MEDS: DOCUSATE SODIUM 50 MG/SENNA 8.6 MG TAB PO SCH ×2 (07:23→20:47)
[2017-11-25 07:31] VITALS: BP 156/83; PULSE 95; RESP 18; TEMP 98.9; O2SAT 94
[2017-11-25] MEDS: METOPROLOL TARTRATE 25 MG TAB PO SCH ×2 (07:33→20:47)
[2017-11-25] MEDS: SODIUM CHLORIDE 0.9% FLUSH 10 ML FLUSH IV FLUSH SCH ×2 (07:33→20:47)
[2017-11-25] MEDS ORDERED: POTASSIUM CHLOR 20 MEQ PREMIX 100 ML IV ONE (08:00)
--- NOTE | 2017-11-25 08:20 | HHI.PR ---
Subjective Remarks Follow-up visit left femoral neck fracture, hypothyroidism, HTN, HLD, atrial fibrillation. Patient seen and examined today. States she is doing okay. Reports she wants to get this over with and waiting for her surgery today. States no acute issues overnight. As per nursing, Fernandez is draining slightly orange, concentrated urine, apparently from report last night patient lost her IV site and was just restarted on IV fluids again. Otherwise, patient denies pain or discomfort. Denies SOB/ dyspnea. Denies chest pain, palpitations, headaches, dizziness. Denies fevers, chills, n/v/d. Denies dysuria. Objective Vitals Vital Signs Date Time Temp Pulse Resp B/P (MAP) Pulse Ox O2 Delivery O2 Flow Rate FiO2 11/25/17 07:36 Room Air 11/25/17 07:31 98.9 95 18 156/83 (107) 94 11/25/17 00:01 99.0 87 18 136/79 (98) 96 11/24/17 20:00 99.1 93 18 148/79 (102) 96 11/24/17 16:00 98.7 90 18 145/80 (101) 96 11/24/17 14:30 99.1 94 153/85 95 11/24/17 14:30 17 11/24/17 14:15 98.2 86 152/87 92 11/24/17 14:00 98.4 106 18 152/94 97 11/24/17 13:20 98.4 106 18 152/94 (113) 97 11/24/17 13:15 Room Air 11/24/17 11:14 98.2 71 18 110/70 (83) 99 11/24/17 08:21 99.0 97 18 118/69 (85) 95 I/O 11/24/17 11/24/17 11/24/17 11/25/17 11/25/17 11/25/17 07:00 15:00 23:00 07:00 15:00 23:00 Intake Total 579 ml 331 ml 240 ml Output Total 200 ml 400 ml 860 ml Balance 379 ml -69 ml -620 ml Intake Oral 250 ml 240 ml FFP 317 ml 329 ml Blood Product IV Normal Saline Flush 12 ml 2 ml Output Urine Total 200 ml 400 ml 860 ml # Bowel Movements 2 Result Diagram: 11/25/17 0345 11/25/17 0345 Imaging Last Impressions Head CT 11/24/17 014 Signed Impressions: CONCLUSION: 1. No acute intracranial findings. 2. Diffuse atrophy and chronic ischemic change. Chest X-Ray 11/24/17142 Signed Impressions: CONCLUSION: No acute cardiopulmonary disease identified. Cervical Spine CT 11/24/17142 Signed Impressions: CONCLUSION: 1. No evidence of fracture. 2. Prominent multilevel degenerative findings. Hip and Pelvis X-Ray 11/24/17 0000 Signed Impressions: CONCLUSION: Impacted left femoral neck fracture. Objective Remarks GENERAL: This is a well-nourished, well-developed patient, in no apparent distress. SKIN: Warm and dry. HEAD: Normocephalic. EYES: Pupils equal round and reactive. No scleral icterus. No injection or drainage. ENT: Nose without bleeding. Throat without erythema. Uvula midline. Airway patent. NECK: Trachea midline. No JVD . CARDIOVASCULAR: Irregular rate and rhythm without murmurs, gallops, or rubs. RESPIRATORY: Clear to auscultation. Breath sounds equal bilaterally. No wheezes , rales, or rhonchi. GASTROINTESTINAL: Abdomen soft, non-tender, nondistended. Bowel sounds active 4. Fernandez catheter draining ron colored urine. MUSCULOSKELETAL: Extremities without clubbing, cyanosis. Left hip trace edema. Palpable DP pulses bilaterally NEUROLOGICAL: Awake and alert. Cranial nerves II through XII intact. Hard of hearing. Motor and sensory grossly within normal limits. Normal speech. A/P Problem List: (1) Fracture of left femur ICD Code: S72.92XA - Unspecified fracture of left femur, initial encounter for closed fracture Status: Acute (2) HTN (hypertension) ICD Code: I10 - Essential (primary) hypertension (3) Hypothyroidism ICD Code: E03.9 - Hypothyroidism, unspecified Assessment and Plan Patient is an 87-year-old female with past medical history of atrial fibrillation on Coumadin, hypothyroidism, HTN, HLD who came into the hospital status post slip and fall coming out of the bathroom. Status post slip and fall Left femoral neck fracture -Plan for orthopedic intervention. Orthopedic consult, held OR procedure yesterday INR elevated 2.7 -Head CT showed no acute intracranial findings, diffuse atrophy and chronic change -Cervical spine CT negative for fracture, prominent multilevel degenerative finding -Hold off on Coumadin for now. FFP transfusion 2 units given. Repeat INR 1.4 -Pain management for now with bowel regimen -PT evaluation postop -N.p.o. Mild hypokalemia -Potassium replaced -Check labs in a.m. Atrial fibrillation, chronic, rate controlled -Prolonged use of Coumadin. Held for procedure -May need to restart Coumadin postprocedure. Monitor INR. -Continue metoprolol HTN HLD -Continue home medication with hold parameters, metoprolol, lovastatin Hypothyroidism -Continue levothyroxine Cnstipation, chronic -Might get exacerbated secondary to anesthesia and pain medication -Start MiraLAX on patient postop aside from Anne-Colace daily DVT prop SCDs for now. Discharge Planning Pending procedure Giovanna Barber Nov 25, 2017 8:20 am
[2017-11-25 12:00] VITALS: BP 170/95; PULSE 82; RESP 16; TEMP 98.9; O2SAT 97
[2017-11-25] MEDS ORDERED: LIDOCAINE HCL 1% PF 5 ML SYRINGE OTHER ONE (12:00)
[2017-11-25] MEDS ORDERED: cloNIDine HCL 0.1 MG TAB PO ONE (12:00)
[2017-11-25] MEDS ORDERED: ONDANSETRON HCL 4 MG/2 ML VIAL IV PUSH ONE (12:00)
[2017-11-25] MEDS ORDERED: NEOSTIGMINE 5 MG/5 ML SYRINGE IV PUSH ONE (12:00)
[2017-11-25] MEDS ORDERED: GLYCOPYRROLATE 1 MG/5 ML SYRINGE IV PUSH ONE (12:00)
[2017-11-25] MEDS ORDERED: LACTATED RINGER'S 1000 ML INJ 1,000 ML IV ONE (12:00)
[2017-11-25] MEDS ORDERED: ROCURONIUM INJ 50 MG/5 ML SYRINGE IV PUSH ONE (12:00)
[2017-11-25] MEDS ORDERED: PROPOFOL 200 MG/20 ML AMP IV ONE (12:00)
[2017-11-25] MEDS ORDERED: DEXAMETHASONE SOD PHOS 4 MG/ML VIAL IV ONE (12:00)
[2017-11-25] MEDS ORDERED: PHENYLEPH/NS 1000 MCG/10 ML SYR IV ONE (12:00)
[2017-11-25 13:16] VITALS: BP 133/84; PULSE 91; RESP 18; TEMP 98.6; O2SAT 94
[2017-11-25] MEDS ORDERED: GENTAMICIN SULFATE 80 MG/2 ML VIAL ONE (14:23)
[2017-11-25] MEDS ORDERED: ACETAMINOPHEN 1000 MG/100 ML 100 ML IV ONE (14:29)
[2017-11-25] MEDS ORDERED: FAMOTIDINE 20 MG/2 ML VIAL ONE (14:29)
[2017-11-25] MEDS ORDERED: ceFAZolin 2 GM PREMIX 50 ML ONE (14:41)
[2017-11-25] MEDS ORDERED: VANCOMYCIN HCL 1000 MG VIAL ONE (14:41)
[2017-11-25] MEDS ORDERED: TEMAZEPAM 15 MG CAP PO PRN (16:30)
[2017-11-25] MEDS ORDERED: Post-op Orders (for Pharmacy) XX ONE (16:30)
[2017-11-25] MEDS ORDERED: diphenhydrAMINE HCL 25 MG CAP PO PRN (16:30)
[2017-11-25] MEDS ORDERED: ALUMINUM/MAGNESIUM/SIMETH 30 ML CUP PO PRN (16:30)
[2017-11-25] MEDS ORDERED: MORPHINE SULFATE 8 MG/ML INJ IM PRN (16:30)
[2017-11-25] MEDS ORDERED: ONDANSETRON HCL 4 MG/2 ML VIAL IVP PRN (16:30)
[2017-11-25] MEDS ORDERED: ACETAMINOPHEN/HYDROcodone 325 MG/10 MG TAB PO PRN ×2 (16:30)
--- NOTE | 2017-11-25 16:36 | PD.OP ---
cc: Harrison Horowitz MD Operative Report Date of Surgery: Nov 25, 2017 Preoperative Diagnosis: Fracture left femoral neck, displaced, subcapital Postoperative Diagnosis: Same Procedure: Left hip bipolar replacement arthroplasty Anesthesia: General Surgeon: Harrison Horowitz Administrative Receptionist(s): FRANKI Webb Operation and Findings: EBL: 150 cc INDICATION: This patient is a 87-year-old female who fell sustaining a displaced left subcapital femoral neck fracture. She is on Coumadin and her INR was elevated. Surgery was delayed by 1 day and now having surgery today for treatment of the same NOTE: Jolie Webb PA-C was present for the entire surgical procedure as my assistant terminal manager. In my medical opinion her skill and care was necessary for the proper management of this patient. COMPONENTS: COMPANY: [employer] CUP: Bipolar, 52 mm STEM: Size 13, Corail, hydroxyapatite-coated HEAD: 28 mm, +1.5 neck length, 05/27 taper PROCEDURE: This patient was brought to the operating room and anesthetized in the supine position and positioned on the routine table in the clean air suite. The patient was then rolled to a left side up lateral position and held with a Biomet hip positioner. The left hip and leg was scrubbed with alcohol followed by Hibiclens followed by chloro prep and draped sterilely. A timeout was done and antibiotics were given within a routine time window. A 4 inch incision was made starting along the posterior one third of the greater trochanter. The iliotibial band was opened in line with the incision. The Charnley retractors were positioned. The posterior capsule and external rotators were taken down together in a sleeve. The fracture was exposed. The head was removed. The neck was cut at the right location. The acetabulum was inspected. All loose bone fragments were removed. Retractors were positioned allowing good visualization of the proximal femur. A box osteotome was utilized followed by progressive broaching for the stem. This was progressively broached until the final size stem.. A trial reduction showed adequate fit with the final bipolar head and neck length. Stability was excellent. Offset was satisfactory. Leg length was reestablished. At 90 of flexion it was stable to 70 of internal rotation. The hip could not be subluxed anteriorly. The canal was irrigated copiously. Hemostasis was controlled. The final stem was inserted. The final head and bipolar component was assembled and impacted. The hip was reduced and stability, offset and leg length was as previously noted. The posterior capsule and external rotators were repaired through bone with interrupted #2 Tycron sutures. The piriformis muscle was repaired with the same. The iliotibial band with interrupted #1 Vicryl sutures. Subcutaneous tissue was approximated with 2-0 Vicryl suture and skin with running intradermal 3-0 Vicryl followed by Steri-Strips and benzoin. A sterile dressing was applied.. The sponge count needle counts and instrument counts were all correct. The patient was awakened and taken to the recovery room in satisfactory condition FINDINGS: There was a completely displaced subcapital femoral neck fracture. The final solution was excellent. Stability was excellent. There was no complication that was appreciated. Harrison Horowitz MD Nov 25, 2017 16:36
[2017-11-25] MEDS: LACTATED RINGER'S 1000 ML INJ 1,000 ML IV SCH (17:00)
[2017-11-25] MEDS ORDERED: WARFARIN SOD 5 MG TAB PO ONE (17:00)
[2017-11-25] MEDS ORDERED: *MEPERIDINE 25 MG INJ VIAL PERIprocedural Use ONLY ONE (17:03)
[2017-11-25] MEDS ORDERED: *LABETALOL HCL 100 MG/20 ML VIAL PERIprocedural Use ONLY ONE (17:16)
--- NOTE | 2017-11-25 17:55 | RADRPT ---
EXAM DATE: 11/25/2017 5:50 PM EDT AGE/SEX: 87 years / Female INDICATIONS: Post op left hip. CLINICAL DATA: This is the patient's initial encounter. Patient reports that signs and symptoms have been present for 1 day and indicates a pain score of Nonresponsive. MEDICAL/SURGICAL HISTORY: Non-responsive. Non-responsive. COMPARISON: No prior exams available for comparison. FINDINGS: Post surgical changes following left hip replacement are noted. Acetabular and femoral components are well seated in satisfactory alignment. There are no acute bony abnormalities. CONCLUSION: Satisfactory postoperative appearance status post left hip replacement. Electronically signed by: Ramiro Coe MD 11/25/2017 5:54 PM EDT
[2017-11-25] MEDS ORDERED: DO NOT ADM ANY ANTICOAGULANT DRUGS PRN (18:45)
[2017-11-25 19:13] VITALS: BP 128/76; PULSE 86; RESP 18; TEMP 97.4; O2SAT 96
[2017-11-25] MEDS: MAGNESIUM HYDROXIDE SUSP 30 ML CUP PO SCH (20:47)
[2017-11-25] MEDS: SENNOSIDES 8.6 MG TAB PO SCH (20:47)
[2017-11-25 23:04] VITALS: BP 118/75; PULSE 92; RESP 18; TEMP 97.8; O2SAT 96
[2017-11-26 03:57] VITALS: BP 173/89; PULSE 94; RESP 18; TEMP 98.2; O2SAT 97
[2017-11-26 04:30] LABS: HEMATOCRIT 35.9 % (35.0-46.0); HEMOGLOBIN 11.9 GM/DL (11.6-15.3); MEAN CELL VOLUME 95.8 FL (80.0-100.0); MEAN CORPUSCULAR HEMOGLOBIN 31.8 PG (27.0-34.0); MEAN CORPUSCULAR HGB CONC 33.2 % (32.0-36.0); MEAN PLATELET VOLUME 10.6 FL (7.0-11.0); PLATELET COUNT 107 TH/MM3 (150-450); RED BLOOD COUNT 3.75 MIL/MM3 (4.00-5.30); RED CELL DISTRIBUTION WIDTH 13.5 % (11.6-17.2); WHITE BLOOD COUNT 11.2 TH/MM3 (4.0-11.0)
[2017-11-26 04:39] LABS: INTERNATIONAL NORMALIZED RATIO 1.6 RATIO; PROTHROMBIN TIME - PATIENT 16.5 SEC (9.8-11.6)
[2017-11-26 04:54] LABS: BICARBONATE 25.1 MEQ/L (21.0-32.0); CALCIUM 8.6 MG/DL (8.5-10.1); CREATININE 1.13 MG/DL (0.50-1.00)
[2017-11-26] MEDS: LACTATED RINGER'S 1000 ML INJ 1,000 ML IV SCH ×2 (05:30→16:57)
[2017-11-26] MEDS: LEVOTHYROXINE SODIUM 100 MCG TAB PO SCH (06:14)
--- NOTE | 2017-11-26 07:35 | PD.ORT.PN ---
Subjective Subjective Remarks Patient looks good clinically. Somewhat confused. No complaints of pain Objective Vitals Vital Signs Date Time Temp Pulse Resp B/P (MAP) Pulse Ox O2 Delivery O2 Flow Rate FiO2 11/26/17 03:57 98.2 94 18 173/89 (117) 97 11/25/17 23:04 97.8 92 18 118/75 (89) 96 11/25/17 19:33 Nasal Cannula 2.00 11/25/17 19:13 97.4 86 18 128/76 (93) 96 11/25/17 17:44 97.9 82 20 152/81 (104) 100 Nasal Cannula 2 11/25/17 17:30 82 20 152/81 (104) 100 Nasal Cannula 2 11/25/17 17:15 78 20 175/82 (113) 100 Nasal Cannula 2 11/25/17 16:54 97.9 97 20 181/90 (120) 95 Nasal Cannula 2 11/25/17 13:16 98.6 91 18 133/84 (100) 94 11/25/17 12:00 98.9 82 16 170/95 (120) 97 11/25/17 07:36 Room Air I/O 11/25/17 11/25/17 11/25/17 11/26/17 11/26/17 11/26/17 07:00 15:00 23:00 07:00 15:00 23:00 Intake Total 240 ml 2000 ml 750 ml Output Total 860 ml 900 ml 450 ml 750 ml Balance -620 ml -900 ml 1550 ml 0 ml Intake Oral 240 ml 750 ml IV Total 1000 ml Other 1000 ml Output Urine Total 860 ml 900 ml 300 ml 750 ml Estimated Blood Loss 150 ml # Bowel Movements 2 0 Result Diagram: 11/26/17 0413 11/26/17 0413 Other Results Laboratory Tests Test 11/26/17 04:19 Prothromb Time International Ratio 1.6 RATIO Prothrombin Time 16.5 SEC (9.8-11.6) Imaging Last 24 hours Impressions Hip X-Ray 11/25/17 1621 Signed Impressions: CONCLUSION: Satisfactory postoperative appearance status post left hip replacement. Objective Remarks Dressing dry. Leg lengths equal. Neuro exam normal. No calf tenderness. X-ray left hip looks fine, status post bipolar Assessment & Plan Assessment and Plan Fracture left femoral neck, subcapital, displaced. Surgery: Left hip bipolar replacement: POD #1 PLAN: Stable orthopedically. Nurses request Tylenol for pain. Weightbearing as tolerated. No dressing change. Probable discharge to long-term facility, when medically clear. I will defer medications to medical staff. Follow-up orthopedics in 2 weeks. Patient was on Coumadin preop. Back on a sliding scale. Dosage per medical staff. I would encourage INR to stay less than 2.2 for 2 weeks. Beyond that, I will defer to her treating medical physicians Harrison Horowitz MD Nov 26, 2017 07:35
[2017-11-26] MEDS ORDERED: ACETAMINOPHEN 500 MG CPLT PO PRN (07:45)
[2017-11-26 08:00] VITALS: BP 154/89; PULSE 114; RESP 18; TEMP 101.7; O2SAT 97
[2017-11-26] MEDS: POLYETHYLENE GLYCOL 17 GM PKG PO SCH (08:22)
[2017-11-26] MEDS: MAGNESIUM HYDROXIDE SUSP 30 ML CUP PO SCH ×2 (08:22→08:50)
[2017-11-26] MEDS: DOCUSATE SODIUM 50 MG/SENNA 8.6 MG TAB PO SCH ×2 (08:46→21:17)
[2017-11-26] MEDS: METOPROLOL TARTRATE 25 MG TAB PO SCH ×2 (08:46→21:17)
[2017-11-26] MEDS: PRAVASTATIN SOD 40 MG TAB PO SCH (08:46)
[2017-11-26] MEDS: SODIUM CHLORIDE 0.9% FLUSH 10 ML FLUSH IV FLUSH SCH ×2 (08:51→20:12)
[2017-11-26] MEDS ORDERED: WARFARIN SOD 5 MG TAB PO SCH ×2 (09:00→16:00)
[2017-11-26] MEDS: ONDANSETRON ODT 4 MG TAB PO PRN (10:36)
--- NOTE | 2017-11-26 11:02 | HHI.PR ---
Subjective Remarks Patient is an 87-year-old female with past medical history of atrial fibrillation on Coumadin, hypothyroidism, HTN, HLD who came into the hospital status post slip and fall coming out of the bathroom. Patient denies hitting her head, or any loss of consciousness. Patient found to have impacted left femoral neck fracture on the x-ray. Patient is due for OR procedure, however her INR is elevated at 2.7. Patient seen and examined today. Reports she is doing well. States she has no pain or discomfort. She does not even know that she had a fracture. States that there was something wrong with her blood that she needs to be rescheduled for the procedure tomorrow. Denies SOB/ dyspnea. Denies chest pain, palpitations, headaches, dizziness. Denies fevers, chills, n/v/d. Denies hematuria, dysuria. 6-14 Follow-up visit left femoral neck fracture, hypothyroidism, HTN, HLD, atrial fibrillation. Patient seen and examined today. States she is doing okay. Reports she wants to get this over with and waiting for her surgery today. States no acute issues overnight. As per nursing, Fernandez is draining slightly orange, concentrated urine, apparently from report last night patient lost her IV site and was just restarted on IV fluids again. Otherwise, patient denies pain or discomfort. Denies SOB/ dyspnea. Denies chest pain, palpitations, headaches, dizziness. Denies fevers, chills, n/v/d. Denies dysuria. 6-15 HAD FEVERS AND NAUSEA TODAY DW RN AND PT WILL NEED SNF PATIENT IS CONFUSED Will check UA with C&S A.m. labs Incentive spirometry Renal insufficiency check a.m. lab Objective Vitals Vital Signs Date Time Temp Pulse Resp B/P (MAP) Pulse Ox O2 Delivery O2 Flow Rate FiO2 11/26/17 09:58 Room Air 11/26/17 08:00 101.7 114 18 154/89 (110) 97 11/26/17 03:57 98.2 94 18 173/89 (117) 97 11/25/17 23:04 97.8 92 18 118/75 (89) 96 11/25/17 19:33 Nasal Cannula 2.00 11/25/17 19:13 97.4 86 18 128/76 (93) 96 11/25/17 17:44 97.9 82 20 152/81 (104) 100 Nasal Cannula 2 11/25/17 17:30 82 20 152/81 (104) 100 Nasal Cannula 2 11/25/17 17:15 78 20 175/82 (113) 100 Nasal Cannula 2 11/25/17 16:54 97.9 97 20 181/90 (120) 95 Nasal Cannula 2 11/25/17 13:16 98.6 91 18 133/84 (100) 94 11/25/17 12:00 98.9 82 16 170/95 (120) 97 I/O 11/25/17 11/25/17 11/25/17 11/26/17 11/26/17 11/26/17 07:00 15:00 23:00 07:00 15:00 23:00 Intake Total 240 ml 2000 ml 750 ml 450 ml Output Total 860 ml 900 ml 450 ml 750 ml 200 ml Balance -620 ml -900 ml 1550 ml 0 ml 250 ml Intake Oral 240 ml 750 ml IV Total 1000 ml 450 ml Other 1000 ml Output Urine Total 860 ml 900 ml 300 ml 750 ml 200 ml Estimated Blood Loss 150 ml # Bowel Movements 2 0 Result Diagram: 11/26/17 0413 11/26/17 0413 Other Results Laboratory Tests Test 11/24/17 01:54 11/25/17 03:45 11/26/17 04:13 11/26/17 04:19 White Blood Count 7.1 TH/MM3 8.8 TH/MM3 11.2 TH/MM3 Red Blood Count 4.27 MIL/MM3 3.88 MIL/MM3 3.75 MIL/MM3 Hemoglobin 13.9 GM/DL 12.5 GM/DL 11.9 GM/DL Hematocrit 40.6 % 36.6 % 35.9 % Mean Corpuscular Volume 95.0 FL 94.4 FL 95.8 FL Mean Corpuscular Hemoglobin 32.5 PG 32.3 PG 31.8 PG Mean Corpuscular Hemoglobin Concent 34.2 % 34.3 % 33.2 % Red Cell Distribution Width 13.3 % 13.5 % 13.5 % Platelet Count 130 TH/MM3 113 TH/MM3 107 TH/MM3 Mean Platelet Volume 10.5 FL 10.7 FL 10.6 FL Neutrophils (%) (Auto) 46.9 % 72.6 % Lymphocytes (%) (Auto) 41.1 % 15.8 % Monocytes (%) (Auto) 7.4 % 8.7 % Eosinophils (%) (Auto) 3.8 % 2.7 % Basophils (%) (Auto) 0.8 % 0.2 % Neutrophils # (Auto) 3.3 TH/MM3 6.4 TH/MM3 Lymphocytes # (Auto) 2.9 TH/MM3 1.4 TH/MM3 Monocytes # (Auto) 0.5 TH/MM3 0.8 TH/MM3 Eosinophils # (Auto) 0.3 TH/MM3 0.2 TH/MM3 Basophils # (Auto) 0.1 TH/MM3 0.0 TH/MM3 CBC Comment DIFF FINAL DIFF FINAL Differential Comment Prothrombin Time 27.6 SEC 14.1 SEC 16.5 SEC Prothromb Time International Ratio 2.7 RATIO 1.4 RATIO 1.6 RATIO Activated Partial Thromboplast Time 31.0 SEC Blood Urea Nitrogen 15 MG/DL 11 MG/DL 15 MG/DL Creatinine 0.87 MG/DL 0.79 MG/DL 1.13 MG/DL Random Glucose 120 MG/DL 122 MG/DL 183 MG/DL Calcium Level 8.4 MG/DL 8.5 MG/DL 8.6 MG/DL Sodium Level 145 MEQ/L 143 MEQ/L 140 MEQ/L Potassium Level 3.8 MEQ/L 3.4 MEQ/L 4.3 MEQ/L Chloride Level 110 MEQ/L 108 MEQ/L 104 MEQ/L Carbon Dioxide Level 26.6 MEQ/L 25.0 MEQ/L 25.1 MEQ/L Anion Gap 8 MEQ/L 10 MEQ/L 11 MEQ/L Estimat Glomerular Filtration Rate 62 ML/MIN 69 ML/MIN 46 ML/MIN Total Creatine Kinase 61 U/L Troponin I LESS THAN 0.02 NG/ML Imaging Last Impressions Hip X-Ray 11/25/17 1621 Signed Impressions: CONCLUSION: Satisfactory postoperative appearance status post left hip replacement. Head CT 11/24/17 014 Signed Impressions: CONCLUSION: 1. No acute intracranial findings. 2. Diffuse atrophy and chronic ischemic change. Chest X-Ray 11/24/17142 Signed Impressions: CONCLUSION: No acute cardiopulmonary disease identified. Cervical Spine CT 11/24/17142 Signed Impressions: CONCLUSION: 1. No evidence of fracture. 2. Prominent multilevel degenerative findings. Hip and Pelvis X-Ray 11/24/17 0000 Signed Impressions: CONCLUSION: Impacted left femoral neck fracture. Objective Remarks GENERAL: Awake alert and oriented 1-2 some confusion-- patient has had some fevers SKIN: Warm and dry. HEAD: Atraumatic. Normocephalic. EYES: Pupils equal and round. No scleral icterus. No injection or drainage. ENT: No nasal bleeding or discharge. Mucous membranes pink and moist. NECK: Trachea midline. No JVD. CARDIOVASCULAR: Regular rate and rhythm. S1-S2 no S3 or S4 RESPIRATORY: No accessory muscle use. Clear to auscultation. Breath sounds equal bilaterally. GASTROINTESTINAL: Abdomen soft, non-tender, nondistended. Hepatic and splenic margins not palpable. MUSCULOSKELETAL: Extremities without clubbing, cyanosis, or edema. No obvious deformities. NEUROLOGICAL: Awake and alert. No obvious cranial nerve deficits. Motor grossly within normal limits. 4 out of 5 muscle strength in the arms and legs. Normal speech. PSYCHIATRIC: INAppropriate mood and affect; insight and judgment ABnormal. Procedures Date of Surgery: Nov 25, 2017 Preoperative Diagnosis: Fracture left femoral neck, displaced, subcapital Postoperative Diagnosis: Same Procedure: Left hip bipolar replacement arthroplasty Anesthesia: General Surgeon: Harrison Horowitz Shaper And Presser(s): FRANKI Webb Operation and Findings: EBL: 150 cc INDICATION: This patient is a 87-year-old female who fell sustaining a displaced left subcapital femoral neck fracture. She is on Coumadin and her INR was elevated. Surgery was delayed by 1 day and now having surgery today for treatment of the same NOTE: Jolie Webb PA-C was present for the entire surgical procedure as my retail assistant manager. In my medical opinion her skill and care was necessary for the proper management of this patient. COMPONENTS: COMPANY: [employer] CUP: Bipolar, 52 mm STEM: Size 13, Corail, hydroxyapatite-coated HEAD: 28 mm, +1.5 neck length, 05/27 taper PROCEDURE: This patient was brought to the operating room and anesthetized in the supine position and positioned on the routine table in the clean air suite. The patient was then rolled to a left side up lateral position and held with a Biomet hip positioner. The left hip and leg was scrubbed with alcohol followed by Hibiclens followed by chloro prep and draped sterilely. A timeout was done and antibiotics were given within a routine time window. A 4 inch incision was made starting along the posterior one third of the greater trochanter. The iliotibial band was opened in line with the incision. The Charnley retractors were positioned. The posterior capsule and external rotators were taken down together in a sleeve. The fracture was exposed. The head was removed. The neck was cut at the right location. The acetabulum was inspected. All loose bone fragments were removed. Retractors were positioned allowing good visualization of the proximal femur. A box osteotome was utilized followed by progressive broaching for the stem. This was progressively broached until the final size stem.. A trial reduction showed adequate fit with the final bipolar head and neck length. Stability was excellent. Offset was satisfactory. Leg length was reestablished. At 90 of flexion it was stable to 70 of internal rotation. The hip could not be subluxed anteriorly. The canal was irrigated copiously. Hemostasis was controlled. The final stem was inserted. The final head and bipolar component was assembled and impacted. The hip was reduced and stability, offset and leg length was as previously noted. The posterior capsule and external rotators were repaired through bone with interrupted #2 Tycron sutures. The piriformis muscle was repaired with the same. The iliotibial band with interrupted #1 Vicryl sutures. Subcutaneous tissue was approximated with 2-0 Vicryl suture and skin with running intradermal 3-0 Vicryl followed by Steri-Strips and benzoin. A sterile dressing was applied.. The sponge count needle counts and instrument counts were all correct. The patient was awakened and taken to the recovery room in satisfactory condition FINDINGS: There was a completely displaced subcapital femoral neck fracture. The final solution was excellent. Stability was excellent. There was no complication that was appreciated. Harrison Horowitz MD Nov 25, 2017 16:36 <Electronically signed by Harrison Horowitz MD> 11/25/17 1636 Medications and IVs Current Medications Sodium Chloride 1,000 ml @ 80 mls/hr [id number] IV Last administered on at 20:49; Start 11/24/17 at 02:59; Stop 11/25/17 at 19:06; Status DC Sodium Chloride (NS Flush) 2 ml UNSCH PRN IV FLUSH FLUSH AFTER USING IV ACCESS ; Start 11/24/17 at 03:00 Sodium Chloride (NS Flush) 2 ml BID IV FLUSH Last administered on 11/26/17 08: 51; Start 11/24/17 at 09:00 Acetaminophen (Tylenol) 650 mg Q4H PRN PO TEMP > 100.4 Last administered on at 08:46; Start 11/24/17 at 03:00 Ondansetron HCl (Zofran Odt) 4 mg Q6H PRN PO NAUSEA OR VOMITING Last administered on 11/26/17at 10:36; Start 11/24/17 at 03:00 Naloxone HCl (Narcan Inj) 0.4 mg UNSCH PRN IV PUSH SEE LABEL COMMENTS; Start at 03:00 Senna/Docusate Sodium (Anne-Colace) 1 tab BID PO Last administered on 08:46; Start 11/24/17 at 09:00 Magnesium Hydroxide (Milk Of Magnesia Liq) 30 ml Q12H PRN PO Mild constipation ; Start 11/24/17 at 03:00 Sennosides (Senokot) 17.2 mg Q12H PRN PO Moderate constipation; Start 11/24/17 at 03:00 Bisacodyl (Dulcolax Supp) 10 mg DAILY PRN RECTAL SEVERE CONSITIPATION; Start at 03:00 Lactulose (Lactulose Liq) 30 ml DAILY PRN PO SEVERE CONSITIPATION; Start at 03:00 Morphine Sulfate (Morphine Inj) 2 mg ONCE ONCE IV PUSH Last administered on at 03:19; Start 11/24/17 at 03:15; Stop 11/24/17 at 03:16; Status DC Metoclopramide HCl (Reglan Inj) 5 mg ONCE ONCE IV PUSH Last administered on 03:20; Start 11/24/17 at 03:15; Stop 11/24/17 at 03:16; Status DC Sodium Chloride 250 ml @ 15 mls/hr ONCE ONCE IV Last administered on at 11:08; Start 11/24/17 at 07:45; Stop 11/25/17 at 00:24; Status DC Levothyroxine Sodium (Synthroid) 100 mcg DAILY@0600 PO Last administered on at 06:14; Start 11/24/17 at 08:15 Pravastatin Sodium (Pravachol) 40 mg DAILY PO Last administered on 11/26/17at 08 :46; Start 11/24/17 at 09:00 Metoprolol Tartrate (Lopressor) 25 mg BID PO Last administered on 11/26/17at 08: 46; Start 11/24/17 at 09:00 Morphine Sulfate (Morphine Inj) 2 mg Q4H PRN IM Pain 6-10, if NPO; Start at 08:15 Acetaminophen/ Hydrocodone Bitart ([place] 5-325 Mg) 1 tab Q4H PRN PO Pain 6-10 ; Start 11/24/17 at 08:15; Stop 11/25/17 at 19:07; Status DC Potassium Chloride 100 ml @ 50 mls/hr BOLUS ONCE IV Last administered on 11/25at 09:39; Start 11/25/17 at 08:00; Stop 11/25/17 at 09:59; Status DC Polyethylene Glycol (Miralax) 17 gm DAILY PO ; Start 11/26/17 at 09:00 Clonidine (Catapres) 0.1 mg ONCE ONCE PO Last administered on 11/25/17at 12:06 ; Start 11/25/17 at 12:00; Stop 11/25/17 at 12:01; Status DC Gentamicin Sulfate (Gentamicin Inj) 240 mg STK-MED ONCE .ROUTE Last administered on 11/25/17at 15:48; Start 11/25/17 at 14:23; Stop 11/25/17 at 14:24 ; Status DC Acetaminophen 100 ml @ As Directed STK-MED ONCE IV ; Start 11/25/17 at 14:29; Stop 11/25/17 at 14:30; Status DC Famotidine (Pepcid Inj) 20 mg STK-MED ONCE .ROUTE ; Start 11/25/17 at 14:29; Stop 11/25/17 at 14:30; Status DC Cefazolin Sodium/ Dextrose 50 ml @ As Directed STK-MED ONCE .ROUTE Last administered on 11/25/17at 15:15; Start 11/25/17 at 14:41; Stop 11/25/17 at 14:42 ; Status DC Vancomycin HCl (Vancomycin Inj) 1,000 mg STK-MED ONCE .ROUTE Last administered on 11/25/17at 15:20; Start 11/25/17 at 14:41; Stop 11/25/17 at 14:42; Status DC Lactated Ringer's 1,000 ml @ 80 mls/hr [id number] IV Last administered on at 17:00; Start 11/25/17 at 17:00 Cefazolin Sodium 1000 mg/Sodium Chloride 100 ml @ 200 mls/hr Q6H IV Last administered on 11/26/17at 08:49; Start 11/25/17 at 21:00; Stop 11/26/17 at 09:29 ; Status DC Miscellaneous Information ([facility] [place] Orders (for Pharmacy)) STAT ONCE XX ; Start 11/25/17 at 16:30; Stop 11/25/17 at 17:00; Status DC Warfarin Sodium (Coumadin) 5 mg ONCE ONCE PO Last administered on 11/25/17at 17 :00; Start 11/25/17 at 17:00; Stop 11/25/17 at 17:01; Status DC Morphine Sulfate (Morphine Inj) 5 mg Q2H PRN IM Breakthrough pain; Start at 16:30 Acetaminophen/ Hydrocodone Bitart ([place] 10-325 Mg) 1 tab Q4H PRN PO PAIN 3-5; Start 11/25/17 at 16:30 Acetaminophen/ Hydrocodone Bitart ([place] 10-325 Mg) 2 tab Q6H PRN PO PAIN SCALE 5 TO 10; Start 11/25/17 at 16:30 Ondansetron HCl (Zofran Inj) 4 mg Q6H PRN IVP NAUSEA OR VOMITING; Start at 16:30; Stop 11/25/17 at 17:21; Status DC Al Hydrox/Mg Hydrox/Simethicone (Mag-Al Plus Susp Liq) 30 ml Q6H PRN PO INDIGESTION; Start 11/25/17 at 16:30 Temazepam (Restoril) 15 mg HS PRN PO SLEEP; Start 11/25/17 at 16:30 Magnesium Hydroxide (Milk Of Magnesia Liq) 30 ml BID PO Last administered on at 08:50; Start 11/25/17 at 21:00 Sennosides (Senokot) 17.2 mg HS PO Last administered on 11/25/17at 20:47; Start 11/25/17 at 21:00 Diphenhydramine HCl (Benadryl) 25 mg Q6H PRN PO ITCHING; Start 11/25/17 at 16: 30 Warfarin Sodium (Coumadin) 2.5 mg DAILY@16 PO ; Start 11/26/17 at 16:00; Status UNV Warfarin Sodium (Coumadin) 5 mg DAILY PO ; Start 11/26/17 at 09:00; Status UNV Patient Medication Teaching (Coumadin Booklet) 1 ONCE ONCE .XX Last administered on 11/25/17at 17:57; Start 11/25/17 at 17:15; Stop 11/25/17 at 17:17 ; Status DC Meperidine HCl (*DEMEROL INJ PERIprocedural ONLY) 25 mg STK-MED ONCE .ROUTE Last administered on 11/25/17at 17:03; Start 11/25/17 at 17:03; Stop 11/25/17 at 17:04; Status DC Fentanyl Citrate (fentaNYL INJ) 200 mcg STK-MED ONCE .ROUTE ; Start 11/25/17 at 17:08; Stop 11/25/17 at 17:09; Status DC Labetalol HCl (*TRANDATE INJ PERIprocedural Use ONLY) 100 mg STK-MED ONCE .ROUTE Last administered on 11/25/17at 17:16; Start 11/25/17 at 17:16; Stop at 17:17; Status DC Miscellaneous Information ([facility] [place] Nursing Information) ALL NURSING DEPARTME... UNSCH PRN .XX SEE LABEL COMMENTS; Start 11/25/17 at 18:45; Stop 11/26/17 at 18: 44 Warfarin Sodium (Coumadin) SEE PROTOCOL DAILY@1600 PO ; Start 11/26/17 at 16:00 Acetaminophen (Tylenol) 500 mg Q6H PRN PO SEE LABEL COMMENTS; Start 11/26/17 at 07:45 Warfarin Sodium (Coumadin) 5 mg DAILY@1600 PO ; Start 11/26/17 at 16:00; Stop at 16:00; Status DC A/P Problem List: (1) Fracture of left femur ICD Code: S72.92XA - Unspecified fracture of left femur, initial encounter for closed fracture Status: Acute (2) HTN (hypertension) ICD Code: I10 - Essential (primary) hypertension (3) Hypothyroidism ICD Code: E03.9 - Hypothyroidism, unspecified Assessment and Plan Patient is an 87-year-old female with past medical history of atrial fibrillation on Coumadin, hypothyroidism, HTN, HLD who came into the hospital status post slip and fall coming out of the bathroom. Status post slip and fall Left femoral neck fracture -Plan for orthopedic intervention. Orthopedic consult, held OR procedure yesterday INR elevated 2.7 -Head CT showed no acute intracranial findings, diffuse atrophy and chronic change -Cervical spine CT negative for fracture, prominent multilevel degenerative finding -Hold off on Coumadin for now. FFP transfusion 2 units given. Repeat INR 1.4 -Pain management for now with bowel regimen -PT evaluation postop -N.p.o. Mild hypokalemia -Potassium replaced -Check labs in a.m. Atrial fibrillation, chronic, rate controlled -Prolonged use of Coumadin. Held for procedure -May need to restart Coumadin postprocedure. Monitor INR. -Continue metoprolol -Restart Coumadin HTN HLD -Continue home medication with hold parameters, metoprolol, lovastatin Hypothyroidism -Continue levothyroxine Constipation, chronic -Might get exacerbated secondary to anesthesia and pain medication -Start MiraLAX on patient postop aside from Anne-Colace daily Renal insufficiency we will check a.m. labs Discussed with patient and RN Continue on Coumadin for her atrial fibrillation and DVT profile Fevers --Check UA with C&S -Incentive spirometry Discharge Planning We will need SNF at discharge consult case management Pablo Roe DO Nov 26, 2017 11:02
[2017-11-26 11:36] LABS: BACTERIA, URINE RARE /hpf; BILIRUBIN, URINE NEG (NEG); BLOOD, URINE LARGE (NEG); GLUCOSE,URINE NEG (NEG); KETONE, URINE NEG (NEG); MUCUS URINE FEW /lpf (OCC); NITRITE,URINE NEG (NEG); SQUAMOUS EPITHELIAL CELL URINE <1 /hpf (0-5); URINE COLOR YELLOW (YELLW/STRAW); URINE LEUKOCYTE ESTERASE MOD (NEG)
[2017-11-26 12:00] VITALS: BP 135/78; PULSE 99; RESP 18; TEMP 99.4; O2SAT 97
[2017-11-26] MEDS: cefTRIAXone INJ 1,000 MG in SODIUM CHLORIDE 0.9% INJ 100 ML IV SCH (12:15)
[2017-11-26 16:00] VITALS: BP 124/64; PULSE 94; RESP 18; TEMP 97.8; O2SAT 97
[2017-11-26] MEDS ORDERED: WARFARIN SOD 2.5 MG TAB PO SCH (16:00)
[2017-11-26] MEDS: WARFARIN SOD 2.5 MG TAB PO SCH (16:23)
[2017-11-26 19:09] VITALS: BP 126/69; PULSE 106; RESP 18; TEMP 97.9; O2SAT 96
[2017-11-26] MEDS: SENNOSIDES 8.6 MG TAB PO SCH (21:17)
[2017-11-26 23:08] VITALS: BP 141/86; PULSE 106; RESP 18; TEMP 97.6; O2SAT 98
[2017-11-27 03:17] VITALS: BP 133/51; PULSE 97; RESP 18; TEMP 99.4; O2SAT 98
[2017-11-27] MEDS: LEVOTHYROXINE SODIUM 100 MCG TAB PO SCH (06:00)
[2017-11-27] MEDS: LACTATED RINGER'S 1000 ML INJ 1,000 ML IV SCH ×2 (06:30→19:00)
[2017-11-27 08:00] VITALS: BP 131/77; PULSE 96; RESP 16; TEMP 99.3; O2SAT 94
[2017-11-27 08:14] LABS: AUTOMATED NEUTROPHIL # 8.1 TH/MM3 (1.8-7.7); BASOPHIL % 0.1 % (0.0-2.0); EOSINOPHIL % 0.4 % (0.0-4.0); HEMATOCRIT 30.5 % (35.0-46.0); HEMOGLOBIN 10.4 GM/DL (11.6-15.3); LYMPH % 11.6 % (9.0-44.0); LYMPHOCYTE # 1.2 TH/MM3 (1.0-4.8); MEAN CELL VOLUME 94.8 FL (80.0-100.0); MEAN CORPUSCULAR HEMOGLOBIN 32.3 PG (27.0-34.0); MEAN CORPUSCULAR HGB CONC 34.1 % (32.0-36.0); MEAN PLATELET VOLUME 11.4 FL (7.0-11.0); MONO % 11.5 % (0.0-8.0); MONOCYTE # 1.2 TH/MM3 (0-0.9); NEUT % 76.4 % (16.0-70.0); PLATELET COUNT 95 TH/MM3 (150-450); RED BLOOD COUNT 3.22 MIL/MM3 (4.00-5.30); RED CELL DISTRIBUTION WIDTH 13.3 % (11.6-17.2); WHITE BLOOD COUNT 10.6 TH/MM3 (4.0-11.0)
[2017-11-27 08:19] LABS: INTERNATIONAL NORMALIZED RATIO 3.2 RATIO; PROTHROMBIN TIME - PATIENT 32.7 SEC (9.8-11.6)
[2017-11-27] MEDS: DOCUSATE SODIUM 50 MG/SENNA 8.6 MG TAB PO SCH ×2 (08:52→20:36)
[2017-11-27] MEDS: METOPROLOL TARTRATE 25 MG TAB PO SCH ×2 (08:52→20:36)
[2017-11-27] MEDS: PRAVASTATIN SOD 40 MG TAB PO SCH (08:52)
[2017-11-27] MEDS: SODIUM CHLORIDE 0.9% FLUSH 10 ML FLUSH IV FLUSH SCH ×2 (08:53→20:37)
[2017-11-27] MEDS: POLYETHYLENE GLYCOL 17 GM PKG PO SCH (08:53)
[2017-11-27] MEDS: MAGNESIUM HYDROXIDE SUSP 30 ML CUP PO SCH ×2 (08:53→20:36)
[2017-11-27 08:54] LABS: ALBUMIN 2.6 GM/DL (3.4-5.0); AST (GOT) 22 U/L (15-37); BICARBONATE 28.6 MEQ/L (21.0-32.0); BLOOD UREA NITROGEN 17 MG/DL (7-18); CALCIUM 8.4 MG/DL (8.5-10.1); CHLORIDE 105 MEQ/L (98-107); CREATININE 0.85 MG/DL (0.50-1.00); GLOMERULAR FILTRATION RATE 63 ML/MIN (>89); MAGNESIUM 2.5 MG/DL (1.5-2.5); SODIUM (NA) 140 MEQ/L (136-145)
--- NOTE | 2017-11-27 08:58 | PD.ORT.PN ---
Subjective Post Op Day #: 2 Subjective Remarks pain controlled. Objective Vitals Vital Signs Date Time Temp Pulse Resp B/P (MAP) Pulse Ox O2 Delivery O2 Flow Rate FiO2 11/27/17 03:17 99.4 97 18 133/51 (78) 98 11/26/17 23:08 97.6 106 18 141/86 (104) 98 11/26/17 22:54 Nasal Cannula 11/26/17 19:09 97.9 106 18 126/69 (88) 96 11/26/17 16:00 97.8 94 18 124/64 (84) 97 11/26/17 12:00 99.4 99 18 135/78 (97) 97 11/26/17 09:58 Room Air I/O 11/26/17 11/26/17 11/26/17 11/27/17 11/27/17 11/27/17 07:00 15:00 23:00 07:00 15:00 23:00 Intake Total 750 ml 450 ml 360 ml 720 ml Output Total 750 ml 200 ml Balance 0 ml 250 ml 360 ml 720 ml Intake Oral 750 ml 360 ml 720 ml IV Total 450 ml Output Urine Total 750 ml 200 ml # Voids 5 6 # Bowel Movements 0 0 Result Diagram: 11/27/17 0726 11/27/17 0726 Other Results Laboratory Tests Test 11/27/17 07:26 Prothromb Time International Ratio 3.2 RATIO Prothrombin Time 32.7 SEC (9.8-11.6) Imaging Last 24 hours Impressions Hip X-Ray 11/25/17 1621 Signed Impressions: CONCLUSION: Satisfactory postoperative appearance status post left hip replacement. Objective Remarks Dressing dry. Leg lengths equal. Neuro exam normal. No calf tenderness. Assessment & Plan Ortho Post Op Day #: 2 Problem List: Assessment and Plan Fracture left femoral neck, subcapital, displaced. Surgery: Left hip bipolar replacement: POD #1 PLAN: Stable orthopedically. Nurses request Tylenol for pain. Weightbearing as tolerated. No dressing change. Probable discharge to care home facility, when medically clear. I will defer medications to medical staff. - ortho stable and cleared Follow-up orthopedics in 2 weeks. Patient was on Coumadin preop. Back on a sliding scale. Dosage per medical staff. I would encourage INR to stay less than 2.2 for 2 weeks. Beyond that, I will defer to her treating medical physicians Hay Robles Nov 27, 2017 08:58
[2017-11-27 09:03] LABS: ALKALINE PHOSPHATASE 64 U/L (45-117); ALT (GPT) 16 U/L (10-53); FREE T4 1.54 NG/DL (0.76-1.46); GLUCOSE,RANDOM 122 MG/DL (74-106); TOTAL BILIRUBIN ADULT 0.9 MG/DL (0.2-1.0); TOTAL PROTEIN 5.8 GM/DL (6.4-8.2)
[2017-11-27 09:08] LABS: PHOSPHORUS 2.1 MG/DL (2.5-4.9)
[2017-11-27] MEDS: cefTRIAXone INJ 1,000 MG in SODIUM CHLORIDE 0.9% INJ 100 ML IV SCH (11:57)
--- NOTE | 2017-11-27 11:57 | HHI.PR ---
Subjective Remarks Patient is an 87-year-old female with past medical history of atrial fibrillation on Coumadin, hypothyroidism, HTN, HLD who came into the hospital status post slip and fall coming out of the bathroom. Patient denies hitting her head, or any loss of consciousness. Patient found to have impacted left femoral neck fracture on the x-ray. Patient is due for OR procedure, however her INR is elevated at 2.7. Patient seen and examined today. Reports she is doing well. States she has no pain or discomfort. She does not even know that she had a fracture. States that there was something wrong with her blood that she needs to be rescheduled for the procedure tomorrow. Denies SOB/ dyspnea. Denies chest pain, palpitations, headaches, dizziness. Denies fevers, chills, n/v/d. Denies hematuria, dysuria. 6-14 Follow-up visit left femoral neck fracture, hypothyroidism, HTN, HLD, atrial fibrillation. Patient seen and examined today. States she is doing okay. Reports she wants to get this over with and waiting for her surgery today. States no acute issues overnight. As per nursing, Fernandez is draining slightly orange, concentrated urine, apparently from report last night patient lost her IV site and was just restarted on IV fluids again. Otherwise, patient denies pain or discomfort. Denies SOB/ dyspnea. Denies chest pain, palpitations, headaches, dizziness. Denies fevers, chills, n/v/d. Denies dysuria. 6-15 HAD FEVERS AND NAUSEA TODAY DW RN AND PT WILL NEED SNF PATIENT IS CONFUSED Will check UA with C&S A.m. labs Incentive spirometry Renal insufficiency check a.m. lab 6-16 HAD VASOVAGAL EVENT YESTERDAY AND TODAY WILL CONSULT CARDIOLOGY WILL GET ECHO AND CAROTIDS THIS MAY BE REASON FOR HER INITIAL FALL DW RN AND PT [facility] NEED [facility] FOR UTI Objective Vitals Vital Signs Date Time Temp Pulse Resp B/P (MAP) Pulse Ox O2 Delivery O2 Flow Rate FiO2 11/27/17 08:00 99.3 96 16 131/77 (95) 94 11/27/17 03:17 99.4 97 18 133/51 (78) 98 11/26/17 23:08 97.6 106 18 141/86 (104) 98 11/26/17 22:54 Nasal Cannula 11/26/17 19:09 97.9 106 18 126/69 (88) 96 11/26/17 16:00 97.8 94 18 124/64 (84) 97 11/26/17 12:00 99.4 99 18 135/78 (97) 97 I/O 11/26/17 11/26/17 11/26/17 11/27/17 11/27/17 11/27/17 07:00 15:00 23:00 07:00 15:00 23:00 Intake Total 750 ml 450 ml 360 ml 720 ml Output Total 750 ml 200 ml Balance 0 ml 250 ml 360 ml 720 ml Intake Oral 750 ml 360 ml 720 ml IV Total 450 ml Output Urine Total 750 ml 200 ml # Voids 5 6 # Bowel Movements 0 0 Result Diagram: 11/27/17 0726 11/27/17 0726 Other Results Laboratory Tests Test 11/25/17 03:45 11/26/17 04:13 11/26/17 04:19 11/26/17 11:15 White Blood Count 8.8 TH/MM3 11.2 TH/MM3 Red Blood Count 3.88 MIL/MM3 3.75 MIL/MM3 Hemoglobin 12.5 GM/DL 11.9 GM/DL Hematocrit 36.6 % 35.9 % Mean Corpuscular Volume 94.4 FL 95.8 FL Mean Corpuscular Hemoglobin 32.3 PG 31.8 PG Mean Corpuscular Hemoglobin Concent 34.3 % 33.2 % Red Cell Distribution Width 13.5 % 13.5 % Platelet Count 113 TH/MM3 107 TH/MM3 Mean Platelet Volume 10.7 FL 10.6 FL Neutrophils (%) (Auto) 72.6 % Lymphocytes (%) (Auto) 15.8 % Monocytes (%) (Auto) 8.7 % Eosinophils (%) (Auto) 2.7 % Basophils (%) (Auto) 0.2 % Neutrophils # (Auto) 6.4 TH/MM3 Lymphocytes # (Auto) 1.4 TH/MM3 Monocytes # (Auto) 0.8 TH/MM3 Eosinophils # (Auto) 0.2 TH/MM3 Basophils # (Auto) 0.0 TH/MM3 CBC Comment DIFF FINAL Differential Comment Prothrombin Time 14.1 SEC 16.5 SEC Prothromb Time International Ratio 1.4 RATIO 1.6 RATIO Blood Urea Nitrogen 11 MG/DL 15 MG/DL Creatinine 0.79 MG/DL 1.13 MG/DL Random Glucose 122 MG/DL 183 MG/DL Calcium Level 8.5 MG/DL 8.6 MG/DL Sodium Level 143 MEQ/L 140 MEQ/L Potassium Level 3.4 MEQ/L 4.3 MEQ/L Chloride Level 108 MEQ/L 104 MEQ/L Carbon Dioxide Level 25.0 MEQ/L 25.1 MEQ/L Anion Gap 10 MEQ/L 11 MEQ/L Estimat Glomerular Filtration Rate 69 ML/MIN 46 ML/MIN Urine Color YELLOW Urine Turbidity CLEAR Urine pH 6.0 Urine Specific [place] 1.009 Urine Protein NEG mg/dL Urine Glucose (UA) NEG mg/dL Urine Ketones NEG mg/dL Urine Occult Blood LARGE Urine Nitrite NEG Urine Bilirubin NEG Urine Urobilinogen 2.0 OR LESS mg/dL Urine Leukocyte Esterase MOD Urine RBC 14 /hpf Urine WBC 7 /hpf Urine Squamous Epithelial Cells <1 /hpf Urine Bacteria RARE /hpf Urine Mucus FEW /lpf Microscopic Urinalysis Comment CULT NOT INDICATED Test 11/27/17 07:26 White Blood Count 10.6 TH/MM3 Red Blood Count 3.22 MIL/MM3 Hemoglobin 10.4 GM/DL Hematocrit 30.5 % Mean Corpuscular Volume 94.8 FL Mean Corpuscular Hemoglobin 32.3 PG Mean Corpuscular Hemoglobin Concent 34.1 % Red Cell Distribution Width 13.3 % Platelet Count 95 TH/MM3 Mean Platelet Volume 11.4 FL Neutrophils (%) (Auto) 76.4 % Lymphocytes (%) (Auto) 11.6 % Monocytes (%) (Auto) 11.5 % Eosinophils (%) (Auto) 0.4 % Basophils (%) (Auto) 0.1 % Neutrophils # (Auto) 8.1 TH/MM3 Lymphocytes # (Auto) 1.2 TH/MM3 Monocytes # (Auto) 1.2 TH/MM3 Eosinophils # (Auto) 0.0 TH/MM3 Basophils # (Auto) 0.0 TH/MM3 CBC Comment AUTO DIFF Differential Comment AUTO DIFF CONFIRMED Platelet Estimate LOW Platelet Morphology Comment NORMAL Prothrombin Time 32.7 SEC Prothromb Time International Ratio 3.2 RATIO Blood Urea Nitrogen 17 MG/DL Creatinine 0.85 MG/DL Random Glucose 122 MG/DL Total Protein 5.8 GM/DL Albumin 2.6 GM/DL Calcium Level 8.4 MG/DL Phosphorus Level 2.1 MG/DL Magnesium Level 2.5 MG/DL Alkaline Phosphatase 64 U/L Aspartate Amino Transf (AST/SGOT) 22 U/L Alanine Aminotransferase (ALT/SGPT) 16 U/L Total Bilirubin 0.9 MG/DL Sodium Level 140 MEQ/L Potassium Level 3.8 MEQ/L Chloride Level 105 MEQ/L Carbon Dioxide Level 28.6 MEQ/L Anion Gap 6 MEQ/L Estimat Glomerular Filtration Rate 63 ML/MIN Free Thyroxine 1.54 NG/DL Thyroid Stimulating Hormone 3rd Gen 0.271 uIU/ML Imaging Last Impressions Hip X-Ray 11/25/17 1621 Signed Impressions: CONCLUSION: Satisfactory postoperative appearance status post left hip replacement. Head CT 11/24/17 014 Signed Impressions: CONCLUSION: 1. No acute intracranial findings. 2. Diffuse atrophy and chronic ischemic change. Chest X-Ray 11/24/17142 Signed Impressions: CONCLUSION: No acute cardiopulmonary disease identified. Cervical Spine CT 11/24/17 014 Signed Impressions: CONCLUSION: 1. No evidence of fracture. 2. Prominent multilevel degenerative findings. Hip and Pelvis X-Ray 11/24/17 0000 Signed Impressions: CONCLUSION: Impacted left femoral neck fracture. Objective Remarks GENERAL: Awake alert and oriented 1-2 some confusion-- patient has had some fevers SKIN: Warm and dry. HEAD: Atraumatic. Normocephalic. EYES: Pupils equal and round. No scleral icterus. No injection or drainage. ENT: No nasal bleeding or discharge. Mucous membranes pink and moist. NECK: Trachea midline. No JVD. CARDIOVASCULAR: Regular rate and rhythm. S1-S2 no S3 or S4 RESPIRATORY: No accessory muscle use. Clear to auscultation. Breath sounds equal bilaterally. GASTROINTESTINAL: Abdomen soft, non-tender, nondistended. Hepatic and splenic margins not palpable. MUSCULOSKELETAL: Extremities without clubbing, cyanosis, or edema. No obvious deformities. NEUROLOGICAL: Awake and alert. No obvious cranial nerve deficits. Motor grossly within normal limits. 4 out of 5 muscle strength in the arms and legs. Normal speech. PSYCHIATRIC: INAppropriate mood and affect; insight and judgment ABnormal. Procedures Date of Surgery: Nov 25, 2017 Preoperative Diagnosis: Fracture left femoral neck, displaced, subcapital Postoperative Diagnosis: Same Procedure: Left hip bipolar replacement arthroplasty Anesthesia: General Surgeon: Harrison Horowitz Maintenance And Utilities Supervisor(s): FRANKI Webb Operation and Findings: EBL: 150 cc INDICATION: This patient is a 87-year-old female who fell sustaining a displaced left subcapital femoral neck fracture. She is on Coumadin and her INR was elevated. Surgery was delayed by 1 day and now having surgery today for treatment of the same NOTE: Jolie Webb PA-C was present for the entire surgical procedure as my assistant basketball coach. In my medical opinion her skill and care was necessary for the proper management of this patient. COMPONENTS: COMPANY: [employer] CUP: Bipolar, 52 mm STEM: Size 13, Corail, hydroxyapatite-coated HEAD: 28 mm, +1.5 neck length, 05/27 taper PROCEDURE: This patient was brought to the operating room and anesthetized in the supine position and positioned on the routine table in the clean air suite. The patient was then rolled to a left side up lateral position and held with a Biomet hip positioner. The left hip and leg was scrubbed with alcohol followed by Hibiclens followed by chloro prep and draped sterilely. A timeout was done and antibiotics were given within a routine time window. A 4 inch incision was made starting along the posterior one third of the greater trochanter. The iliotibial band was opened in line with the incision. The Charnley retractors were positioned. The posterior capsule and external rotators were taken down together in a sleeve. The fracture was exposed. The head was removed. The neck was cut at the right location. The acetabulum was inspected. All loose bone fragments were removed. Retractors were positioned allowing good visualization of the proximal femur. A box osteotome was utilized followed by progressive broaching for the stem. This was progressively broached until the final size stem.. A trial reduction showed adequate fit with the final bipolar head and neck length. Stability was excellent. Offset was satisfactory. Leg length was reestablished. At 90 of flexion it was stable to 70 of internal rotation. The hip could not be subluxed anteriorly. The canal was irrigated copiously. Hemostasis was controlled. The final stem was inserted. The final head and bipolar component was assembled and impacted. The hip was reduced and stability, offset and leg length was as previously noted. The posterior capsule and external rotators were repaired through bone with interrupted #2 Tycron sutures. The piriformis muscle was repaired with the same. The iliotibial band with interrupted #1 Vicryl sutures. Subcutaneous tissue was approximated with 2-0 Vicryl suture and skin with running intradermal 3-0 Vicryl followed by Steri-Strips and benzoin. A sterile dressing was applied.. The sponge count needle counts and instrument counts were all correct. The patient was awakened and taken to the recovery room in satisfactory condition FINDINGS: There was a completely displaced subcapital femoral neck fracture. The final solution was excellent. Stability was excellent. There was no complication that was appreciated. Harrison Horowitz MD Nov 25, 2017 16:36 <Electronically signed by Harrison Horowitz MD> 11/25/17 1636 Medications and IVs Current Medications Sodium Chloride 1,000 ml @ 80 mls/hr [id number] IV Last administered on at 20:49; Start 11/24/17 at 02:59; Stop 11/25/17 at 19:06; Status DC Sodium Chloride (NS Flush) 2 ml UNSCH PRN IV FLUSH FLUSH AFTER USING IV ACCESS ; Start 11/24/17 at 03:00 Sodium Chloride (NS Flush) 2 ml BID IV FLUSH Last administered on 11/27/17at 08: 53; Start 11/24/17 at 09:00 Acetaminophen (Tylenol) 650 mg Q4H PRN PO TEMP > 100.4 Last administered on at 08:46; Start 11/24/17 at 03:00 Ondansetron HCl (Zofran Odt) 4 mg Q6H PRN PO NAUSEA OR VOMITING Last administered on 11/26/17at 10:36; Start 11/24/17 at 03:00 Naloxone HCl (Narcan Inj) 0.4 mg UNSCH PRN IV PUSH SEE LABEL COMMENTS; Start at 03:00 Senna/Docusate Sodium (Anne-Colace) 1 tab BID PO Last administered on at 08:52; Start 11/24/17 at 09:00 Magnesium Hydroxide (Milk Of Magnesia Liq) 30 ml Q12H PRN PO Mild constipation ; Start 11/24/17 at 03:00 Sennosides (Senokot) 17.2 mg Q12H PRN PO Moderate constipation; Start 11/24/17 at 03:00 Bisacodyl (Dulcolax Supp) 10 mg DAILY PRN RECTAL SEVERE CONSITIPATION; Start at 03:00 Lactulose (Lactulose Liq) 30 ml DAILY PRN PO SEVERE CONSITIPATION; Start at 03:00 Morphine Sulfate (Morphine Inj) 2 mg ONCE ONCE IV PUSH Last administered on at 03:19; Start 11/24/17 at 03:15; Stop 11/24/17 at 03:16; Status DC Metoclopramide HCl (Reglan Inj) 5 mg ONCE ONCE IV PUSH Last administered on at 03:20; Start 11/24/17 at 03:15; Stop 11/24/17 at 03:16; Status DC Sodium Chloride 250 ml @ 15 mls/hr ONCE ONCE IV Last administered on at 11:08; Start 11/24/17 at 07:45; Stop 11/25/17 at 00:24; Status DC Levothyroxine Sodium (Synthroid) 100 mcg DAILY@0600 PO Last administered on at 06:00; Start 11/24/17 at 08:15 Pravastatin Sodium (Pravachol) 40 mg DAILY PO Last administered on 11/27/17at 08 :52; Start 11/24/17 at 09:00 Metoprolol Tartrate (Lopressor) 25 mg BID PO Last administered on 11/27/17at 08: 52; Start 11/24/17 at 09:00 Morphine Sulfate (Morphine Inj) 2 mg Q4H PRN IM Pain 6-10, if NPO; Start at 08:15 Acetaminophen/ Hydrocodone Bitart ([place] 5-325 Mg) 1 tab Q4H PRN PO Pain 6-10 ; Start 11/24/17 at 08:15; Stop 11/25/17 at 19:07; Status DC Potassium Chloride 100 ml @ 50 mls/hr BOLUS ONCE IV Last administered on 11/25at 09:39; Start 11/25/17 at 08:00; Stop 11/25/17 at 09:59; Status DC Polyethylene Glycol (Miralax) 17 gm DAILY PO Last administered on 11/27/17at 08: 53; Start 11/26/17 at 09:00 Clonidine (Catapres) 0.1 mg ONCE ONCE PO Last administered on 11/25/17at 12:06 ; Start 11/25/17 at 12:00; Stop 11/25/17 at 12:01; Status DC Gentamicin Sulfate (Gentamicin Inj) 240 mg STK-MED ONCE .ROUTE Last administered on 11/25/17at 15:48; Start 11/25/17 at 14:23; Stop 11/25/17 at 14:24 ; Status DC Acetaminophen 100 ml @ As Directed STK-MED ONCE IV ; Start 11/25/17 at 14:29; Stop 11/25/17 at 14:30; Status DC Famotidine (Pepcid Inj) 20 mg STK-MED ONCE .ROUTE ; Start 11/25/17 at 14:29; Stop 11/25/17 at 14:30; Status DC Cefazolin Sodium/ Dextrose 50 ml @ As Directed STK-MED ONCE .ROUTE Last administered on 11/25/17at 15:15; Start 11/25/17 at 14:41; Stop 11/25/17 at 14:42 ; Status DC Vancomycin HCl (Vancomycin Inj) 1,000 mg STK-MED ONCE .ROUTE Last administered on 11/25/17at 15:20; Start 11/25/17 at 14:41; Stop 11/25/17 at 14:42; Status DC Lactated Ringer's 1,000 ml @ 80 mls/hr [id number] IV Last administered on at 17:00; Start 11/25/17 at 17:00 Cefazolin Sodium 1000 mg/Sodium Chloride 100 ml @ 200 mls/hr Q6H IV Last administered on 11/26/17at 08:49; Start 11/25/17 at 21:00; Stop 11/26/17 at 09:29 ; Status DC Miscellaneous Information (Misc Post-op Orders (for Pharmacy)) STAT ONCE XX ; Start 11/25/17 at 16:30; Stop 11/25/17 at 17:00; Status DC Warfarin Sodium (Coumadin) 5 mg ONCE ONCE PO Last administered on 11/25/17at 17 :00; Start 11/25/17 at 17:00; Stop 11/25/17 at 17:01; Status DC Morphine Sulfate (Morphine Inj) 5 mg Q2H PRN IM Breakthrough pain; Start at 16:30 Acetaminophen/ Hydrocodone Bitart ([place] 10-325 Mg) 1 tab Q4H PRN PO PAIN 3-5; Start 11/25/17 at 16:30 Acetaminophen/ Hydrocodone Bitart ([place] 10-325 Mg) 2 tab Q6H PRN PO PAIN SCALE 5 TO 10; Start 11/25/17 at 16:30 Ondansetron HCl (Zofran Inj) 4 mg Q6H PRN IVP NAUSEA OR VOMITING; Start at 16:30; Stop 11/25/17 at 17:21; Status DC Al Hydrox/Mg Hydrox/Simethicone (Mag-Al Plus Susp Liq) 30 ml Q6H PRN PO INDIGESTION; Start 11/25/17 at 16:30 Temazepam (Restoril) 15 mg HS PRN PO SLEEP; Start 11/25/17 at 16:30 Magnesium Hydroxide (Milk Of Magnesia Liq) 30 ml BID PO Last administered on at 08:53; Start 11/25/17 at 21:00 Sennosides (Senokot) 17.2 mg HS PO Last administered on 11/26/17at 21:17; Start 11/25/17 at 21:00 Diphenhydramine HCl (Benadryl) 25 mg Q6H PRN PO ITCHING; Start 11/25/17 at 16: 30 Warfarin Sodium (Coumadin) 2.5 mg DAILY@16 PO ; Start 11/26/17 at 16:00; Status UNV Warfarin Sodium (Coumadin) 5 mg DAILY PO ; Start 11/26/17 at 09:00; Status UNV Patient Medication Teaching (Coumadin Booklet) 1 ONCE ONCE .XX Last administered on 11/25/17at 17:57; Start 11/25/17 at 17:15; Stop 11/25/17 at 17:17 ; Status DC Meperidine HCl (*DEMEROL INJ PERIprocedural ONLY) 25 mg STK-MED ONCE .ROUTE Last administered on 11/25/17at 17:03; Start 11/25/17 at 17:03; Stop 11/25/17 at 17:04; Status DC Fentanyl Citrate (fentaNYL INJ) 200 mcg STK-MED ONCE .ROUTE ; Start 11/25/17 at 17:08; Stop 11/25/17 at 17:09; Status DC Labetalol HCl (*TRANDATE INJ PERIprocedural Use ONLY) 100 mg STK-MED ONCE .ROUTE Last administered on 11/25/17at 17:16; Start 11/25/17 at 17:16; Stop at 17:17; Status DC Miscellaneous Information ([facility]) ALL NURSING DEPARTME... UNSCH PRN .XX SEE LABEL COMMENTS; Start 11/25/17 at 18:45; Stop 11/26/17 at 18: 44; Status DC Warfarin Sodium (Coumadin) SEE PROTOCOL DAILY@1600 PO Last administered on 11/26at 16:23; Start 11/26/17 at 16:00 Acetaminophen (Tylenol) 500 mg Q6H PRN PO SEE LABEL COMMENTS; Start 11/26/17 at 07:45 Warfarin Sodium (Coumadin) 5 mg DAILY@1600 PO ; Start 11/26/17 at 16:00; Stop at 16:00; Status DC Ceftriaxone Sodium 1000 mg/ Sodium Chloride 100 ml @ 200 mls/hr Q24H IV Last administered on 11/26/17at 12:15; Start 11/26/17 at 13:00 A/P Problem List: (1) Fracture of left femur ICD Code: S72.92XA - Unspecified fracture of left femur, initial encounter for closed fracture Status: Acute (2) HTN (hypertension) ICD Code: I10 - Essential (primary) hypertension (3) Hypothyroidism ICD Code: E03.9 - Hypothyroidism, unspecified Assessment and Plan Patient is an 87-year-old female with past medical history of atrial fibrillation on Coumadin, hypothyroidism, HTN, HLD who came into the hospital status post slip and fall coming out of the bathroom. Status post slip and fall Left femoral neck fracture -Plan for orthopedic intervention. Orthopedic consult, held OR procedure yesterday INR elevated 2.7 -Head CT showed no acute intracranial findings, diffuse atrophy and chronic change -Cervical spine CT negative for fracture, prominent multilevel degenerative finding -Hold off on Coumadin for now. FFP transfusion 2 units given. Repeat INR 1.4 -Pain management for now with bowel regimen -PT evaluation postop -N.p.o. Mild hypokalemia -Potassium replaced -Check labs in a.m. Atrial fibrillation, chronic, rate controlled -Prolonged use of Coumadin. Held for procedure -May need to restart Coumadin postprocedure. Monitor INR. -Continue metoprolol -Restart Coumadin HTN HLD -Continue home medication with hold parameters, metoprolol, lovastatin Hypothyroidism -Continue levothyroxine Constipation, chronic -Might get exacerbated secondary to anesthesia and pain medication -Start MiraLAX on patient postop aside from Anne-Colace daily Renal insufficiency we will check a.m. labs Discussed with patient and RN Continue on Coumadin for her atrial fibrillation and DVT profile SYNCOPAL EPISODE ON 11-26 AND 11-27 WILL CONSULT CARDIOLOGY FOR EVAL WILL GET ECHO AND CAROTIDS Fevers --Check UA with C&S STARTED ON [facility] -Incentive spirometry Discharge Planning We will need SNF at discharge consult case management ISSUES WITH SYNCOPE VS VASOVAGAL- CONSULT CARDIO- ECHO AND CAROTIDS ONCE CLEARED THEN TO SNF ON [facility] FOR UTI Pablo Roe DO Nov 27, 2017 11:57
[2017-11-27 12:00] VITALS: BP 160/83; PULSE 87; RESP 16; TEMP 98.6; O2SAT 96
--- NOTE | 2017-11-27 13:17 | RADRPT ---
EXAM DATE: 11/27/2017 1:09 PM EDT AGE/SEX: 87 years / Female INDICATIONS: Syncope. CLINICAL DATA: This is the patient's initial encounter. Patient reports that signs and symptoms have been present for 3 days and indicates a pain score of 2/10. MEDICAL/SURGICAL HISTORY: . Hypertension. Hyperlipidemia. Hypercholesterolemia. Atrial fibri llation. Hypothyroidism. Left hip fracture. . Hysterectomy. Tonsillectomy. COMPARISON: No prior exams available for comparison. VELOCITY PARAMETERS: ICA/CCA Ratio: Right 0.8 , Left 0.8 ICA: Right 84 cm/sec, Left 78 cm/sec CCA: Right 111 cm/sec, Left 103 cm/sec ECA: Right 54 cm/sec, Left 59 cm/sec Vertebral: Right 69 cm/sec antegrade, Left 67 cm/sec antegrade FINDINGS: Right Carotid: No significant stenosis is visualized. The waveforms are within normal limits. Left Carotid: No significant stenosis is visualized. The waveforms are within normal limits. Other: None. CONCLUSION: 1. Right Internal Carotid Artery: Within normal limits for age. 2. Left Internal Carotid Artery: Within normal limits for age. Electronically signed by: Nathan Guerra MD 11/27/2017 1:16 PM EDT
[2017-11-27 15:18] LABS: HEMOGLOBIN A1C 5.3 % (4.3-6.0)
[2017-11-27] MEDS: WARFARIN SOD 2.5 MG TAB PO SCH (15:40)
[2017-11-27 16:00] VITALS: BP 144/72; PULSE 105; RESP 16; TEMP 98.2; O2SAT 96
--- NOTE | 2017-11-27 16:49 | MB ---
cc: Sina Roberto MD DATE: 11/27/2017 REASON FOR CONSULTATION: Syncope. HISTORY OF PRESENT ILLNESS: The patient is an 87-year-old white female with a history of atrial fibrillation, the chronicity of which is not entirely clear, hypertension, hyperlipidemia, hypothyroidism who was admitted status post a fall resulting in left hip fracture. She underwent left total hip arthroplasty 11/25/2017 without complication. Today, according to the patient, the nurses stood her up while making her bed. The next thing she knew, she was back in bed. She may have lost consciousness for a few seconds. She denies any other episodes of lightheadedness, syncope or near syncope. She also denies chest pain, shortness of breath, palpitations, pedal edema, and paroxysmal nocturnal dyspnea. PAST MEDICAL HISTORY: 1. Atrial fibrillation, possibly chronic. The patient cannot recall any history of atrial fibrillation, but has been on Coumadin chronically. 2. Hypertension. 3. Hyperlipidemia. 4. Hypothyroidism. PAST SURGICAL HISTORY: 1. Hysterectomy. 2. Tonsillectomy. 3. Left hip replacement. CARDIAC MEDICATIONS AT HOME: 1. Lovastatin 40 mg at bedtime. 2. Coumadin 2.5 mg daily. 3. Metoprolol tartrate 25 mg b.i.d. ALLERGIES: SULFA. FAMILY HISTORY: Noncontributory. SOCIAL HISTORY: The patient denies any history of alcohol or tobacco abuse. REVIEW OF SYSTEMS: As in history of present illness, otherwise negative or noncontributory. She also denies headache, visual changes, unilateral weakness or numbness, abdominal pain, melena, dyspepsia, bright red blood per rectum. PHYSICAL EXAMINATION: VITAL SIGNS: Blood pressure 160/83 with a pulse 87, respirations 16. GENERAL: She is a well-developed, well-nourished white female, in no acute distress. NECK: Jugular venous pressure is normal. Carotid pulses are 2+ bilaterally and without bruits. CHEST: Reveals clear lungs moss. CARDIAC: She has an irregularly irregular rhythm without S3 or murmur. ABDOMEN: She has a soft, nontender abdomen. Bowel sounds are present. There is no definite hepatosplenomegaly. EXTREMITIES: Reveals no clubbing, cyanosis or edema. LABORATORY DATA: EKG shows atrial fibrillation, nonspecific ST abnormalities. LABORATORY DATA: Includes WBC 10.6, hemoglobin 10.4, platelets 95. Potassium 3.8, BUN 17, creatinine 0.85. CK 61. Troponin less than 0.02. INR 3.2. IMAGING STUDIES: Chest x-ray shows no acute disease. IMPRESSION: An 87-year-old white female with a history of hypertension, hyperlipidemia, atrial fibrillation of unclear chronicity, admitted with left hip fracture, status post a fall. I have been asked to see the patient for syncope and "vasovagal". The patient only recalls losing consciousness possibly today as she stood up while her bed was being made by the nurses. She denies any other episodes of dizziness, syncope or near syncope. No major bradyarrhythmias or tachyarrhythmias are noted on monitoring. From what I can tell, she had no symptoms to suggest a vasovagal mediated episode. In addition, the patient adamantly denies ever losing consciousness at the time of her fall resulting in hip fracture. She states she simply "slipped". Her episode of syncope may have been due to orthostatic hypotension. RECOMMENDATIONS: 1. No specific cardiac recommendations at this time. Continue cardiac monitoring. 2. Await the 2D echo ordered. MD EFRA Murray/ANDRAE , 02:39 PM , 04:48 PM MTDD
[2017-11-27 19:24] VITALS: BP 138/75; PULSE 113; RESP 18; TEMP 98.2; O2SAT 97
[2017-11-27 19:55] VITALS: PULSE 91
[2017-11-27] MEDS: SENNOSIDES 8.6 MG TAB PO SCH (20:36)
[2017-11-28] VITALS (10 sets, daily range): BP systolic 109–170; BP diastolic 57–90; PULSE 88–105; RESP 18–20; TEMP 97.8–100; O2SAT 96–99
[2017-11-28] MEDS: LACTATED RINGER'S 1000 ML INJ 1,000 ML IV SCH ×2 (05:00→20:00)
[2017-11-28] MEDS: LEVOTHYROXINE SODIUM 100 MCG TAB PO SCH (05:26)
[2017-11-28 06:02] LABS: AUTOMATED NEUTROPHIL # 6.1 TH/MM3 (1.8-7.7); BASOPHIL % 0.2 % (0.0-2.0); EOSINOPHIL # 0.2 TH/MM3 (0-0.4); EOSINOPHIL % 2.5 % (0.0-4.0); HEMATOCRIT 28.9 % (35.0-46.0); HEMOGLOBIN 9.8 GM/DL (11.6-15.3); LYMPH % 14.4 % (9.0-44.0); LYMPHOCYTE # 1.2 TH/MM3 (1.0-4.8); MEAN CELL VOLUME 94.5 FL (80.0-100.0); MEAN CORPUSCULAR HEMOGLOBIN 32.1 PG (27.0-34.0); MEAN CORPUSCULAR HGB CONC 33.9 % (32.0-36.0); MEAN PLATELET VOLUME 10.5 FL (7.0-11.0); MONOCYTE # 0.9 TH/MM3 (0-0.9); NEUT % 71.9 % (16.0-70.0); PLATELET COUNT 110 TH/MM3 (150-450); RED BLOOD COUNT 3.06 MIL/MM3 (4.00-5.30); RED CELL DISTRIBUTION WIDTH 13.3 % (11.6-17.2); WHITE BLOOD COUNT 8.5 TH/MM3 (4.0-11.0)
[2017-11-28 06:13] LABS: INTERNATIONAL NORMALIZED RATIO 2.6 RATIO; PROTHROMBIN TIME - PATIENT 26.2 SEC (9.8-11.6)
[2017-11-28 06:28] LABS: ALBUMIN 2.2 GM/DL (3.4-5.0); ALT (GPT) 14 U/L (10-53); AST (GOT) 19 U/L (15-37); BICARBONATE 28.7 MEQ/L (21.0-32.0); BLOOD UREA NITROGEN 19 MG/DL (7-18); CALCIUM 7.7 MG/DL (8.5-10.1); CHLORIDE 108 MEQ/L (98-107); CREATININE 0.77 MG/DL (0.50-1.00); GLOMERULAR FILTRATION RATE 71 ML/MIN (>89); GLUCOSE,RANDOM 111 MG/DL (74-106); MAGNESIUM 2.5 MG/DL (1.5-2.5); PHOSPHORUS 2.3 MG/DL (2.5-4.9); SODIUM (NA) 143 MEQ/L (136-145)
[2017-11-28 06:30] LABS: ALKALINE PHOSPHATASE 66 U/L (45-117); TOTAL BILIRUBIN ADULT 0.8 MG/DL (0.2-1.0); TOTAL PROTEIN 5.3 GM/DL (6.4-8.2)
[2017-11-28] MEDS: METOPROLOL TARTRATE 25 MG TAB PO SCH ×2 (07:55→21:28)
[2017-11-28] MEDS: PRAVASTATIN SOD 40 MG TAB PO SCH (07:55)
[2017-11-28] MEDS: MAGNESIUM HYDROXIDE SUSP 30 ML CUP PO SCH ×2 (07:55→20:57)
[2017-11-28] MEDS: DOCUSATE SODIUM 50 MG/SENNA 8.6 MG TAB PO SCH ×2 (07:55→20:58)
[2017-11-28] MEDS: SODIUM CHLORIDE 0.9% FLUSH 10 ML FLUSH IV FLUSH SCH ×2 (07:55→21:28)
[2017-11-28] MEDS: POLYETHYLENE GLYCOL 17 GM PKG PO SCH (07:55)
--- NOTE | 2017-11-28 10:00 | HHI.PR ---
Subjective Remarks Pt denies any lightheadedness or dizziness, denies any SOB/CP/N/V Objective Vitals Vital Signs Date Time Temp Pulse Resp B/P (MAP) Pulse Ox O2 Delivery O2 Flow Rate FiO2 11/28/17 09:24 94 135/74 (94) 97 127/67 (87) 109/57 (74) 11/28/17 08:00 99.6 105 20 122/75 (91) 97 11/28/17 03:51 99 11/28/17 03:45 97.8 94 18 127/63 (84) 98 11/28/17 00:18 98.5 92 18 138/67 (90) 98 11/28/17 00:00 92 11/27/17 20:00 Room Air 11/27/17 19:55 91 11/27/17 19:24 98.2 113 18 138/75 (96) 97 11/27/17 16:00 98.2 105 16 144/72 (96) 96 11/27/17 12:00 98.6 87 16 160/83 (108) 96 I/O 11/27/17 11/27/17 11/27/17 11/28/17 11/28/17 11/28/17 07:00 15:00 23:00 07:00 15:00 23:00 Intake Total 720 ml 500 ml 480 ml Output Total 2000 ml Balance 720 ml -1500 ml 480 ml Intake Oral 720 ml 500 ml 480 ml Output Urine Total 2000 ml # Voids 6 5 # Bowel Movements 0 2 2 Result Diagram: 11/28/17 0539 11/28/17 0539 Imaging Last Impressions Carotid Artery Ultrasound 11/27/17 0000 Signed Impressions: CONCLUSION: 1. Right Internal Carotid Artery: Within normal limits for age. 2. Left Internal Carotid Artery: Within normal limits for age. Hip X-Ray 11/25/17 1621 Signed Impressions: CONCLUSION: Satisfactory postoperative appearance status post left hip replacement. Head CT 11/24/17 014 Signed Impressions: CONCLUSION: 1. No acute intracranial findings. 2. Diffuse atrophy and chronic ischemic change. Chest X-Ray 11/24/17142 Signed Impressions: CONCLUSION: No acute cardiopulmonary disease identified. Cervical Spine CT 11/24/17142 Signed Impressions: CONCLUSION: 1. No evidence of fracture. 2. Prominent multilevel degenerative findings. Hip and Pelvis X-Ray 11/24/17 0000 Signed Impressions: CONCLUSION: Impacted left femoral neck fracture. Objective Remarks GENERAL: awake and alert, smiles at times, pleasant, appears comfortable. CARDIOVASCULAR: Regular rate and rhythm. no murmurs RESPIRATORY: Clear to auscultation. Breath sounds equal bilaterally. GASTROINTESTINAL: Abdomen soft, non-tender, nondistended. Hepatic and splenic margins not palpable. MUSCULOSKELETAL: Extremities without edema. dressing over left thigh, d/c/i, able to wiggle her toes and sensation intact Procedures Date of Surgery: Nov 25, 2017 Preoperative Diagnosis: Fracture left femoral neck, displaced, subcapital Postoperative Diagnosis: Same Procedure: Left hip bipolar replacement arthroplasty Anesthesia: General Surgeon: Harrison Horowitz Steel Post Installer(s): FRANKI Webb Operation and Findings: EBL: 150 cc INDICATION: This patient is a 87-year-old female who fell sustaining a displaced left subcapital femoral neck fracture. She is on Coumadin and her INR was elevated. Surgery was delayed by 1 day and now having surgery today for treatment of the same NOTE: Jolie Webb PA-C was present for the entire surgical procedure as my auction assistant. In my medical opinion her skill and care was necessary for the proper management of this patient. COMPONENTS: COMPANY: [employer] CUP: Bipolar, 52 mm STEM: Size 13, Corail, hydroxyapatite-coated HEAD: 28 mm, +1.5 neck length, 05/27 taper PROCEDURE: This patient was brought to the operating room and anesthetized in the supine position and positioned on the routine table in the clean air suite. The patient was then rolled to a left side up lateral position and held with a Biomet hip positioner. The left hip and leg was scrubbed with alcohol followed by Hibiclens followed by chloro prep and draped sterilely. A timeout was done and antibiotics were given within a routine time window. A 4 inch incision was made starting along the posterior one third of the greater trochanter. The iliotibial band was opened in line with the incision. The Charnley retractors were positioned. The posterior capsule and external rotators were taken down together in a sleeve. The fracture was exposed. The head was removed. The neck was cut at the right location. The acetabulum was inspected. All loose bone fragments were removed. Retractors were positioned allowing good visualization of the proximal femur. A box osteotome was utilized followed by progressive broaching for the stem. This was progressively broached until the final size stem.. A trial reduction showed adequate fit with the final bipolar head and neck length. Stability was excellent. Offset was satisfactory. Leg length was reestablished. At 90 of flexion it was stable to 70 of internal rotation. The hip could not be subluxed anteriorly. The canal was irrigated copiously. Hemostasis was controlled. The final stem was inserted. The final head and bipolar component was assembled and impacted. The hip was reduced and stability, offset and leg length was as previously noted. The posterior capsule and external rotators were repaired through bone with interrupted #2 Tycron sutures. The piriformis muscle was repaired with the same. The iliotibial band with interrupted #1 Vicryl sutures. Subcutaneous tissue was approximated with 2-0 Vicryl suture and skin with running intradermal 3-0 Vicryl followed by Steri-Strips and benzoin. A sterile dressing was applied.. The sponge count needle counts and instrument counts were all correct. The patient was awakened and taken to the recovery room in satisfactory condition FINDINGS: There was a completely displaced subcapital femoral neck fracture. The final solution was excellent. Stability was excellent. There was no complication that was appreciated. Harrison Horowitz MD Nov 25, 2017 16:36 <Electronically signed by Harrison Horowitz MD> 11/25/17 1636 A/P Problem List: (1) Fracture of left femur ICD Code: S72.92XA - Unspecified fracture of left femur, initial encounter for closed fracture Status: Acute (2) HTN (hypertension) ICD Code: I10 - Essential (primary) hypertension (3) Hypothyroidism ICD Code: E03.9 - Hypothyroidism, unspecified Assessment and Plan Patient is an 87-year-old female with past medical history of atrial fibrillation on Coumadin, hypothyroidism, HTN, HLD who came into the hospital status post slip and fall coming out of the bathroom. Status post slip and fall Left femoral neck fracture -s/p Left hip bipolar replacement: POD #2 Weightbearing as tolerated. No dressing change. Per orthopedic team, coumadin on sliding scale w INR goal to be less than 2.2 for 2 weeks. -Head CT showed no acute intracranial findings, diffuse atrophy and chronic change -Cervical spine CT negative for fracture, prominent multilevel degenerative finding -s/p FFP transfusion 2 units given for sx -Pain management for now with bowel regimen -PT evaluation postop syncopal episode post op - cards evaluating pt. suspecting orthostatic BPs as culprit. RN did check a set of orthostatic BPs this morning. SBP went from 135 to 109 (laying to standing). Orthostatic precautions in place. - carotid u/s neg for stenosis. -ECHO pending. Mild hypokalemia -replace as needed Atrial fibrillation, chronic, rate controlled -Prolonged use of Coumadin. now therapeutic, INR goal for the next 2 weeks is to try to keep it 2.0-2.2 -on coumadin HTN HLD -Continue home medication with hold parameters, metoprolol, lovastatin Hypothyroidism -Continue levothyroxine Constipation, chronic -Might get exacerbated secondary to anesthesia and pain medication -Start MiraLAX on patient postop aside from Anne-Colace daily Renal insufficiency resolved. Discharge Planning f/u echo. caution when getting up as pt does have orthostatic BP's Malathi De La Vega MD Nov 28, 2017 09:59
--- NOTE | 2017-11-28 10:09 | PD.CARD.PN ---
Subjective Subjective Remarks Denies CP, dyspnea, dizziness, syncope, near syncope, palpitations. Objective Medications Item Value Date Time Warfarin Sodium SEE PROTOCOL 11/26/17 1600 (Coumadin) DAILY@1600/PO Pravastatin Sodium 40 mg 11/24/17 0900 (Pravachol) DAILY/PO 11/28/17 0755 Metoprolol 25 mg 11/24/17 0900 Tartrate BID/PO 11/28/17 0755 (Lopressor) Current Medications Medications (Trade) Dose Ordered Sig/Louisa Route Start Time Stop Time Status Last Admin (NS Flush) 2 ml UNSCH PRN IV FLUSH 11/24/17 03:00 (NS Flush) 2 ml BID IV FLUSH 11/24/17 09:00 11/28/17 07:55 (Tylenol) 650 mg Q4H PRN PO 11/24/17 03:00 11/26/17 08:46 (Zofran Odt) 4 mg Q6H PRN PO 11/24/17 03:00 11/26/17 10:36 (Narcan Inj) 0.4 mg UNSCH PRN IV PUSH 11/24/17 03:00 (Anne-Colace) 1 tab BID PO 11/24/17 09:00 11/27/17 20:36 (Milk Of Magnesia Liq) 30 ml Q12H PRN PO 11/24/17 03:00 (Senokot) 17.2 mg Q12H PRN PO 11/24/17 03:00 (Dulcolax Supp) 10 mg DAILY PRN RECTAL 11/24/17 03:00 (Lactulose Liq) 30 ml DAILY PRN PO 11/24/17 03:00 (Pravachol) 40 mg DAILY PO 11/24/17 09:00 11/28/17 07:55 (Lopressor) 25 mg BID PO 11/24/17 09:00 11/28/17 07:55 (Morphine Inj) 2 mg Q4H PRN IM 11/24/17 08:15 (Miralax) 17 gm DAILY PO 11/26/17 09:00 11/27/17 08:53 Lactated Ringer's 1,000 ml @ 80 mls/hr [id number] IV 11/25/17 17:00 11/25/17 17:00 (Morphine Inj) 5 mg Q2H PRN IM 11/25/17 16:30 ([place] 10-325 Mg) 1 tab Q4H PRN PO 11/25/17 16:30 ([place] 10-325 Mg) 2 tab Q6H PRN PO 11/25/17 16:30 (Mag-Al Plus Susp Liq) 30 ml Q6H PRN PO 11/25/17 16:30 (Restoril) 15 mg HS PRN PO 11/25/17 16:30 (Milk Of Magnesia Liq) 30 ml BID PO 11/25/17 21:00 11/27/17 20:36 (Senokot) 17.2 mg HS PO 11/25/17 21:00 11/27/17 20:36 (Benadryl) 25 mg Q6H PRN PO 11/25/17 16:30 (Coumadin) SEE PROTOCOL DAILY@1600 PO 11/26/17 16:00 11/26/17 16:23 (Tylenol) 500 mg Q6H PRN PO 11/26/17 07:45 Ceftriaxone Sodium 1000 mg/ Sodium Chloride 100 ml @ 200 mls/hr Q24H IV 11/26/17 13:00 11/27/17 11:57 Vital Signs / I&O Vital Signs Date Time Temp Pulse Resp B/P (MAP) Pulse Ox O2 Delivery O2 Flow Rate FiO2 11/28/17 09:24 94 135/74 (94) 97 127/67 (87) 109/57 (74) 11/28/17 08:00 99.6 105 20 122/75 (91) 97 11/28/17 03:51 99 11/28/17 03:45 97.8 94 18 127/63 (84) 98 11/28/17 00:18 98.5 92 18 138/67 (90) 98 11/28/17 00:00 92 11/27/17 20:00 Room Air 11/27/17 19:55 91 11/27/17 19:24 98.2 113 18 138/75 (96) 97 11/27/17 16:00 98.2 105 16 144/72 (96) 96 11/27/17 12:00 98.6 87 16 160/83 (108) 96 I/O 11/27/17 11/27/17 11/27/17 11/28/17 11/28/17 11/28/17 07:00 15:00 23:00 07:00 15:00 23:00 Intake Total 720 ml 500 ml 480 ml Output Total 2000 ml Balance 720 ml -1500 ml 480 ml Intake Oral 720 ml 500 ml 480 ml Output Urine Total 2000 ml # Voids 6 5 # Bowel Movements 0 2 2 Physical Exam GENERAL: Well developed, well nourished. No acute distress. HEENT: Jugular venous pressure is normal. CHEST: Lungs clear to auscultation bilaterally. Unlabored respiratory effort. CARDIAC: Irregular rate and rhythm without S3, S4, or murmur. ABDOMEN: Soft, nontender, no hepatosplenomegaly. Bowel sounds present. EXTREMITIES: No clubbing, cyanosis, or edema. Laboratory Laboratory Tests Test 11/28/17 05:39 White Blood Count 8.5 TH/MM3 Red Blood Count 3.06 MIL/MM3 Hemoglobin 9.8 GM/DL Hematocrit 28.9 % Mean Corpuscular Volume 94.5 FL Mean Corpuscular Hemoglobin 32.1 PG Mean Corpuscular Hemoglobin Concent 33.9 % Red Cell Distribution Width 13.3 % Platelet Count 110 TH/MM3 Mean Platelet Volume 10.5 FL Neutrophils (%) (Auto) 71.9 % Lymphocytes (%) (Auto) 14.4 % Monocytes (%) (Auto) 11.0 % Eosinophils (%) (Auto) 2.5 % Basophils (%) (Auto) 0.2 % Neutrophils # (Auto) 6.1 TH/MM3 Lymphocytes # (Auto) 1.2 TH/MM3 Monocytes # (Auto) 0.9 TH/MM3 Eosinophils # (Auto) 0.2 TH/MM3 Basophils # (Auto) 0.0 TH/MM3 CBC Comment DIFF FINAL Differential Comment Prothrombin Time 26.2 SEC Prothromb Time International Ratio 2.6 RATIO Blood Urea Nitrogen 19 MG/DL Creatinine 0.77 MG/DL Random Glucose 111 MG/DL Total Protein 5.3 GM/DL Albumin 2.2 GM/DL Calcium Level 7.7 MG/DL Phosphorus Level 2.3 MG/DL Magnesium Level 2.5 MG/DL Alkaline Phosphatase 66 U/L Aspartate Amino Transf (AST/SGOT) 19 U/L Alanine Aminotransferase (ALT/SGPT) 14 U/L Total Bilirubin 0.8 MG/DL Sodium Level 143 MEQ/L Potassium Level 3.7 MEQ/L Chloride Level 108 MEQ/L Carbon Dioxide Level 28.7 MEQ/L Anion Gap 6 MEQ/L Estimat Glomerular Filtration Rate 71 ML/MIN Assessment and Plan Problem List: (1) Syncope ICD Codes: R55 - Syncope and collapse Status: Acute Plan: No further loss of consciousness. May have been due to orthostatic hypotension. Mildly tachycardic at times, no sustained kacey or tachyarrhythmias. No new recommendations. Will f/u as needed. (2) Chronic atrial fibrillation ICD Codes: I48.2 - Chronic atrial fibrillation Status: Chronic Plan: Atrial fibrillation probably chronic. HR's occasionally transiently elevated. Patient asymptomatic. Recommend continue warfarin to achieve INR 2- 2.5. Increase metoprolol. (3) HTN (hypertension) ICD Codes: I10 - Essential (primary) hypertension Status: Chronic Plan: Stable. Normotensive. Code Status full code Discussed Condition With patient Problem Qualifiers (1) Syncope: Qualified Codes: R55 - Syncope and collapse (2) HTN (hypertension): Qualified Codes: I10 - Essential (primary) hypertension Sina Roberto MD Nov 28, 2017 10:09
--- NOTE | 2017-11-28 10:54 | PD.ORT.PN ---
Subjective Post Op Day #: 2 Subjective Remarks pain controlled. has been having syncope episodes, seeing cardiology. Objective Vitals Vital Signs Date Time Temp Pulse Resp B/P (MAP) Pulse Ox O2 Delivery O2 Flow Rate FiO2 11/28/17 09:24 94 135/74 (94) 97 127/67 (87) 109/57 (74) 11/28/17 08:00 99.6 105 20 122/75 (91) 97 11/28/17 03:51 99 11/28/17 03:45 97.8 94 18 127/63 (84) 98 11/28/17 00:18 98.5 92 18 138/67 (90) 98 11/28/17 00:00 92 11/27/17 20:00 Room Air 11/27/17 19:55 91 11/27/17 19:24 98.2 113 18 138/75 (96) 97 11/27/17 16:00 98.2 105 16 144/72 (96) 96 11/27/17 12:00 98.6 87 16 160/83 (108) 96 I/O 11/27/17 11/27/17 11/27/17 11/28/17 11/28/17 11/28/17 07:00 15:00 23:00 07:00 15:00 23:00 Intake Total 720 ml 500 ml 480 ml Output Total 2000 ml Balance 720 ml -1500 ml 480 ml Intake Oral 720 ml 500 ml 480 ml Output Urine Total 2000 ml # Voids 6 5 # Bowel Movements 0 2 2 Result Diagram: 11/28/17 0539 11/28/17 0539 Other Results Laboratory Tests Test 11/28/17 05:39 Prothromb Time International Ratio 2.6 RATIO Prothrombin Time 26.2 SEC (9.8-11.6) Imaging Last 24 hours Impressions Hip X-Ray 11/25/17 1621 Signed Impressions: CONCLUSION: Satisfactory postoperative appearance status post left hip replacement. Objective Remarks Dressing dry. Leg lengths equal. Neuro exam normal. No calf tenderness. Assessment & Plan Ortho Post Op Day #: 2 Problem List: Assessment and Plan Fracture left femoral neck, subcapital, displaced. Surgery: Left hip bipolar replacement: POD #2 PLAN: Stable orthopedically. Nurses request Tylenol for pain. Weightbearing as tolerated. No dressing change. syncope - per cardiology [facility]able [facility] to [facility] facility, when medically clear. I will defer medications to medical staff. - ortho stable and cleared Follow-up orthopedics in 2 weeks. Patient was on Coumadin preop. Back on a sliding scale. Dosage per medical staff. I would encourage INR to stay less than 2.2 for 2 weeks. Beyond that, I will defer to her treating medical physicians Hay Robles Nov 28, 2017 10:54
[2017-11-28] MEDS: cefTRIAXone INJ 1,000 MG in SODIUM CHLORIDE 0.9% INJ 100 ML IV SCH (12:02)
[2017-11-28] MEDS: WARFARIN SOD 2.5 MG TAB PO SCH (14:00)
[2017-11-28] MEDS: SENNOSIDES 8.6 MG TAB PO SCH (20:58)
[2017-11-29] VITALS (7 sets, daily range): BP systolic 111–164; BP diastolic 64–85; PULSE 87–111; RESP 16–20; TEMP 98.4–99; O2SAT 97–98
[2017-11-29] MEDS: LEVOTHYROXINE SODIUM 88 MCG TAB PO SCH (05:58)
[2017-11-29] MEDS: LACTATED RINGER'S 1000 ML INJ 1,000 ML IV SCH ×2 (05:59→19:32)
[2017-11-29] MEDS: METOPROLOL TARTRATE 25 MG TAB PO SCH ×2 (07:29→20:55)
[2017-11-29] MEDS: PRAVASTATIN SOD 40 MG TAB PO SCH (07:29)
[2017-11-29 07:30] LABS: INTERNATIONAL NORMALIZED RATIO 2.1 RATIO; PROTHROMBIN TIME - PATIENT 21.4 SEC (9.8-11.6)
[2017-11-29] MEDS: SODIUM CHLORIDE 0.9% FLUSH 10 ML FLUSH IV FLUSH SCH ×2 (07:30→20:56)
[2017-11-29] MEDS: DOCUSATE SODIUM 50 MG/SENNA 8.6 MG TAB PO SCH ×2 (07:30→20:56)
[2017-11-29] MEDS: POLYETHYLENE GLYCOL 17 GM PKG PO SCH (07:30)
[2017-11-29] MEDS: MAGNESIUM HYDROXIDE SUSP 30 ML CUP PO SCH ×2 (07:30→20:56)
[2017-11-29 07:43] LABS: HEMATOCRIT 29.7 % (35.0-46.0); HEMOGLOBIN 10.1 GM/DL (11.6-15.3)
[2017-11-29] MEDS: cefTRIAXone INJ 1,000 MG in SODIUM CHLORIDE 0.9% INJ 100 ML IV SCH (13:46)
--- NOTE | 2017-11-29 16:19 | HHI.PR ---
Subjective Remarks Pt complains of pain in her wrist where IV was and it was infiltrated. otherwise states she feels fine. No CP/SOB/N/V Discussed w PT, pt was again orthostatic during her eval. supine BP's 126/71 w HR 100, sitting was 116/70 w HR 100 and standing (almost) 89/57 HR 97. Objective Vitals Vital Signs Date Time Temp Pulse Resp B/P (MAP) Pulse Ox O2 Delivery O2 Flow Rate FiO2 11/29/17 12:00 98.4 101 16 111/64 (80) 98 11/29/17 08:00 98.5 99 18 133/66 (88) 98 11/29/17 03:24 98.7 96 18 115/68 (84) 98 11/29/17 01:26 141/75 (97) 11/28/17 23:19 99.0 97 18 170/90 (116) 98 11/28/17 21:00 Room Air 11/28/17 20:18 99.7 95 18 122/61 (81) 97 I/O 11/28/17 11/28/17 11/28/17 11/29/17 11/29/17 11/29/17 07:00 15:00 23:00 07:00 15:00 23:00 Intake Total 480 ml 580 ml 480 ml Balance 480 ml 580 ml 480 ml Intake Oral 480 ml 480 ml 480 ml IV Total 100 ml # Voids 5 4 11 # Bowel Movements 2 5 5 Result Diagram: 11/29/17 0656 11/28/17 0539 Imaging Last Impressions Carotid Artery Ultrasound 11/27/17 0000 Signed Impressions: CONCLUSION: 1. Right Internal Carotid Artery: Within normal limits for age. 2. Left Internal Carotid Artery: Within normal limits for age. Hip X-Ray 11/25/17 1621 Signed Impressions: CONCLUSION: Satisfactory postoperative appearance status post left hip replacement. Head CT 11/24/17 014 Signed Impressions: CONCLUSION: 1. No acute intracranial findings. 2. Diffuse atrophy and chronic ischemic change. Chest X-Ray 11/24/17 014 Signed Impressions: CONCLUSION: No acute cardiopulmonary disease identified. Cervical Spine CT 11/24/17 014 Signed Impressions: CONCLUSION: 1. No evidence of fracture. 2. Prominent multilevel degenerative findings. Hip and Pelvis X-Ray 11/24/17 0000 Signed Impressions: CONCLUSION: Impacted left femoral neck fracture. Objective Remarks GENERAL: awake and alert, smiles at times, pleasant, appears comfortable. skin: right IV infiltrated, swelling noted but no erythema. RN was notified. CARDIOVASCULAR: Regular rate and rhythm. no murmurs RESPIRATORY: Clear to auscultation. Breath sounds equal bilaterally. GASTROINTESTINAL: Abdomen soft, non-tender, nondistended. Procedures Date of Surgery: Nov 25, 2017 Preoperative Diagnosis: Fracture left femoral neck, displaced, subcapital Postoperative Diagnosis: Same Procedure: Left hip bipolar replacement arthroplasty Anesthesia: General Surgeon: Harrison Horowitz Unit Manager(s): FRANKI Webb Operation and Findings: EBL: 150 cc INDICATION: This patient is a 87-year-old female who fell sustaining a displaced left subcapital femoral neck fracture. She is on Coumadin and her INR was elevated. Surgery was delayed by 1 day and now having surgery today for treatment of the same NOTE: Jolie Webb PA-C was present for the entire surgical procedure as my registered nurse first assistant. In my medical opinion her skill and care was necessary for the proper management of this patient. COMPONENTS: COMPANY: [employer] CUP: Bipolar, 52 mm STEM: Size 13, [place], hydroxyapatite-coated HEAD: 28 mm, +1.5 neck length, 12/14 taper PROCEDURE: This patient was brought to the operating room and anesthetized in the supine position and positioned on the routine table in the clean air suite. The patient was then rolled to a left side up lateral position and held with a Biomet hip positioner. The left hip and leg was scrubbed with alcohol followed by Hibiclens followed by chloro prep and draped sterilely. A timeout was done and antibiotics were given within a routine time window. A 4 inch incision was made starting along the posterior one third of the greater trochanter. The iliotibial band was opened in line with the incision. The Charnley retractors were positioned. The posterior capsule and external rotators were taken down together in a sleeve. The fracture was exposed. The head was removed. The neck was cut at the right location. The acetabulum was inspected. All loose bone fragments were removed. Retractors were positioned allowing good visualization of the proximal femur. A box osteotome was utilized followed by progressive broaching for the stem. This was progressively broached until the final size stem.. A trial reduction showed adequate fit with the final bipolar head and neck length. Stability was excellent. Offset was satisfactory. Leg length was reestablished. At 90 of flexion it was stable to 70 of internal rotation. The hip could not be subluxed anteriorly. The canal was irrigated copiously. Hemostasis was controlled. The final stem was inserted. The final head and bipolar component was assembled and impacted. The hip was reduced and stability, offset and leg length was as previously noted. The posterior capsule and external rotators were repaired through bone with interrupted #2 Tycron sutures. The piriformis muscle was repaired with the same. The iliotibial band with interrupted #1 Vicryl sutures. Subcutaneous tissue was approximated with 2-0 Vicryl suture and skin with running intradermal 3-0 Vicryl followed by Steri-Strips and benzoin. A sterile dressing was applied.. The sponge count needle counts and instrument counts were all correct. The patient was awakened and taken to the recovery room in satisfactory condition FINDINGS: There was a completely displaced subcapital femoral neck fracture. The final solution was excellent. Stability was excellent. There was no complication that was appreciated. Harrison Horowitz MD Nov 25, 2017 16:36 <Electronically signed by Harrison Horowitz MD> 11/25/17 1636 A/P Problem List: (1) Fracture of left femur ICD Code: S72.92XA - Unspecified fracture of left femur, initial encounter for closed fracture Status: Acute (2) HTN (hypertension) ICD Code: I10 - Essential (primary) hypertension Status: Chronic (3) Hypothyroidism ICD Code: E03.9 - Hypothyroidism, unspecified Assessment and Plan Patient is an 87-year-old female with past medical history of atrial fibrillation on Coumadin, hypothyroidism, HTN, HLD who came into the hospital status post slip and fall coming out of the bathroom. Status post slip and fall Left femoral neck fracture -s/p Left hip bipolar replacement: POD #3 Weightbearing as tolerated. No dressing change. Per orthopedic team, coumadin on sliding scale w INR goal to be less than 2.2 for 2 weeks. -Head CT showed no acute intracranial findings, diffuse atrophy and chronic change -Cervical spine CT negative for fracture, prominent multilevel degenerative finding -s/p FFP transfusion 2 units given for sx -Pain management for now with bowel regimen -PT evaluation postop syncopal episode post op - cards evaluating pt. suspecting orthostatic BPs which is most likely the culprit. Orthostatic precautions in place. Pt unable to work w PT due to this therefore I have started her on midodrine 2.5mg po TID and hopefully this will control her symptoms. - carotid u/s neg for stenosis. - ECHO still pending. Mild hypokalemia -replace as needed Atrial fibrillation, chronic, rate controlled -Prolonged use of Coumadin. now therapeutic, INR goal for the next 2 weeks is to try to keep it 2.0-2.2 per Ortho recs then normal goal -on coumadin, pharmacy assisting. HTN HLD -Continue home medication with hold parameters, metoprolol, lovastatin Hypothyroidism -Continue levothyroxine Constipation, chronic -Might get exacerbated secondary to anesthesia and pain medication -Start MiraLAX on patient postop aside from Anne-Colace daily Renal insufficiency resolved. Discharge Planning f/u echo. caution when getting up as pt does have orthostatic BP's midodrine started. Monitor BP's closely. anticipate d/c in 1-2 days Problem Qualifiers (1) HTN (hypertension): Qualified Codes: I10 - Essential (primary) hypertension Malathi De La Vega MD Nov 29, 2017 16:19
[2017-11-29] MEDS ORDERED: PILL SPLITTER OTHER PRN (16:30)
[2017-11-29] MEDS: WARFARIN SOD 2.5 MG TAB PO SCH (16:45)
[2017-11-29] MEDS: MIDODRINE 5 MG TAB PO SCH (16:46)
--- NOTE | 2017-11-29 18:57 | ECHRPT ---
Indication: HYPERTENSIVE HEART DIS CONCLUSIONS The left ventricular systolic function is normal with an estimated ejection fraction in the range of 55-60%. Left ventricular diastolic function parameters are normal. Angsl-[id number] mitral valve regurgitation. There is mild to moderate tricuspid valve regurgitation. BP: / HR: Rhythm: Sinus MEASUREMENTS (Male / Female) Normal Values Technical Quality:Fair 2D ECHO LV Diastolic Diameter PLAX 3.7 cm 4.2 - 5.9 / 3.9 - 5.3 cm LV Systolic Diameter PLAX 2.6 cm IVS Diastolic Thickness 1.0 cm 0.6 - 1.0 / 0.6 - 0.9 cm LVPW Diastolic Thickness 1.0 cm 0.6 - 1.0 / 0.6 - 0.9 cm LV Relative Wall Thickness 0.5 RV Internal Dim ED PLAX 3.0 cm LVOT Diameter 1.9 cm Aortic Root Diameter 3.5 cm LA Systolic Diameter LX 3.5 cm 3.0 - 4.0 / 2.7 - 3.8 cm M-MODE AV Cusp Separation MM 1.8 cm DOPPLER AV Peak Velocity 128.5 cm/s AV Peak Gradient 6.6 mmHg AV Mean Gradient 3.5 mmHg AV Velocity Time Integral 21.5 cm LVOT Peak Velocity 72.2 cm/s LVOT Peak Gradient 2.1 mmHg LVOT Velocity Time Integral 13.1 cm AV Area Cont Eq vti 1.7 cm AV Area Cont Eq pk 1.6 cm Mitral E Point Velocity 98.7 cm/s LV E' Lateral Velocity 12.0 cm/s Mitral E to LV E' Lateral Ratio 8.2 LV E' Septal Velocity 14.1 cm/s Mitral E to LV E' Septal Ratio 7.0 TR Peak Velocity 281.0 cm/s TR Peak Gradient 31.6 mmHg Right Atrial Pressure 10.0 mmHg Pulmonary Artery Systolic Pressu 41.6 mmHg Right Ventricular Systolic Press 41.6 mmHg PV Peak Velocity 57.9 cm/s PV Peak Gradient 1.3 mmHg FINDINGS LEFT VENTRICLE Normal left ventricular size. Wall thickness is normal. The left ventricular systolic function is normal with an estimated ejection fraction in the range of 55-60%. Left ventricular diastolic function parameters are normal. RIGHT VENTRICLE Normal right ventricular size and systolic function. LEFT ATRIUM The left atrial size is normal. RIGHT ATRIUM The right atrial size is upper limits of normal. ATRIAL SEPTUM No atrial level shunt is demonstrated by color flow Doppler interrogation. AORTA The aortic root and proximal ascending aorta are normal in size on limited imaging. MITRAL VALVE Structurally normal mitral valve. No mitral valve stenosis. Lirjw-tr-nysy mitral valve regurgitation. AORTIC VALVE Probable rileaflet aortic valve. No aortic valve stenosis or regurgitation. TRICUSPID VALVE Grossly normal There is mild to moderate tricuspid valve regurgitation. The estimated pulmonary arterial pressure is 41.6 mmHg. PULMONARY VALVE No pulmonary valve regurgitation or stenosis. VESSELS The inferior vena cava is normal in size. PERICARDIUM No pericardial effusion. A prominent epicardial fat pad is present. Honorio Carlin DO (Electronically Signed) Final Date:29 November 2017 18:55
[2017-11-29] MEDS: SENNOSIDES 8.6 MG TAB PO SCH (20:56)
[2017-11-30] VITALS (13 sets, daily range): BP systolic 117–146; BP diastolic 63–81; PULSE 80–125; RESP 17–18; TEMP 97.8–98.8; O2SAT 96–99
[2017-11-30 05:22] LABS: AUTOMATED NEUTROPHIL # 4.8 TH/MM3 (1.8-7.7); BASOPHIL % 0.4 % (0.0-2.0); EOSINOPHIL # 0.3 TH/MM3 (0-0.4); EOSINOPHIL % 4.5 % (0.0-4.0); HEMATOCRIT 30.9 % (35.0-46.0); HEMOGLOBIN 10.4 GM/DL (11.6-15.3); LYMPH % 20.9 % (9.0-44.0); LYMPHOCYTE # 1.6 TH/MM3 (1.0-4.8); MEAN CORPUSCULAR HEMOGLOBIN 32.1 PG (27.0-34.0); MEAN CORPUSCULAR HGB CONC 33.8 % (32.0-36.0); MEAN PLATELET VOLUME 9.9 FL (7.0-11.0); MONOCYTE # 0.8 TH/MM3 (0-0.9); NEUT % 63.2 % (16.0-70.0); PLATELET COUNT 184 TH/MM3 (150-450); RED BLOOD COUNT 3.25 MIL/MM3 (4.00-5.30); RED CELL DISTRIBUTION WIDTH 13.1 % (11.6-17.2); WHITE BLOOD COUNT 7.7 TH/MM3 (4.0-11.0)
[2017-11-30 05:35] LABS: INTERNATIONAL NORMALIZED RATIO 2.1 RATIO; PROTHROMBIN TIME - PATIENT 21.5 SEC (9.8-11.6)
[2017-11-30 05:42] LABS: BICARBONATE 27.2 MEQ/L (21.0-32.0); CALCIUM 8.1 MG/DL (8.5-10.1); CREATININE 0.65 MG/DL (0.50-1.00); MAGNESIUM 2.3 MG/DL (1.5-2.5)
[2017-11-30] MEDS: MIDODRINE 5 MG TAB PO SCH ×3 (06:05→16:54)
[2017-11-30] MEDS: LEVOTHYROXINE SODIUM 88 MCG TAB PO SCH (06:05)
[2017-11-30] MEDS: METOPROLOL TARTRATE 25 MG TAB PO SCH ×2 (08:25→21:35)
[2017-11-30] MEDS: POLYETHYLENE GLYCOL 17 GM PKG PO SCH (08:25)
[2017-11-30] MEDS: DOCUSATE SODIUM 50 MG/SENNA 8.6 MG TAB PO SCH ×2 (08:25→21:35)
[2017-11-30] MEDS: SODIUM CHLORIDE 0.9% FLUSH 10 ML FLUSH IV FLUSH SCH ×2 (08:25→21:36)
[2017-11-30] MEDS: MAGNESIUM HYDROXIDE SUSP 30 ML CUP PO SCH ×2 (08:25→21:35)
[2017-11-30] MEDS: LACTATED RINGER'S 1000 ML INJ 1,000 ML IV SCH ×2 (08:26→19:56)
[2017-11-30] MEDS: cefTRIAXone INJ 1,000 MG in SODIUM CHLORIDE 0.9% INJ 100 ML IV SCH (12:53)
[2017-11-30] MEDS: WARFARIN SOD 2.5 MG TAB PO SCH (16:54)
--- NOTE | 2017-11-30 17:43 | HHI.PR ---
Subjective Remarks Follow-up for left hip arthroplasty s/p fall, syncope, severe orthostatic hypotension, constipation. Patient reports feeling very uncomfortable today. She states she has only had a small bowel movement and she is constantly straining. She still feels very constipated and distended despite laxatives. Denies any nausea/vomiting. She reports diffuse abdominal soreness, but denies any specific localizing pains. Denies any fevers or chills. Denies any dysuria or increased urinary frequency or urgency. RN reported the patient syncopized again today upon standing while checking orthostatic blood pressures. Supine BP 132/81, sitting BP 118/63, and upon standing the patient passed out, unable to obtain standing blood pressure. The patient does not recall this event and denies any lightheadedness or dizziness currently. Of note, discussed with RN, reports the patient has actually had 5 large bowel movements today. RN reports the patient gets confused this time a day. Will hold off on further laxatives for now. Objective Vitals Vital Signs Date Time Temp Pulse Resp B/P (MAP) Pulse Ox O2 Delivery O2 Flow Rate FiO2 11/30/17 16:00 98.4 94 18 140/72 (94) 99 11/30/17 15:38 85 11/30/17 13:45 80 11/30/17 12:35 117/74 (88) 11/30/17 12:30 132/81 (98) 11/30/17 12:30 118/63 (81) 11/30/17 12:00 98.6 87 18 130/71 (90) 98 11/30/17 12:00 98.6 87 18 130/71 (90) 98 11/30/17 09:15 125 11/30/17 08:00 98 Room Air 11/30/17 08:00 98.0 96 18 133/75 (94) 98 11/30/17 04:00 98.7 87 18 139/70 (93) 97 11/30/17 00:00 98.8 84 17 136/72 (93) 97 11/29/17 20:15 Room Air 11/29/17 20:02 99 11/29/17 20:00 98.6 87 18 127/73 (91) 98 I/O 11/29/17 11/29/17 11/29/17 11/30/17 11/30/17 11/30/17 07:00 15:00 23:00 07:00 15:00 23:00 Intake Total 480 ml 600 ml 100 ml 360 ml 740 ml Balance 480 ml 600 ml 100 ml 360 ml 740 ml Intake Oral 480 ml 600 ml 360 ml 640 ml IV Total 100 ml 100 ml # Voids 11 5 3 5 1 # Bowel Movements 5 1 4 1 Result Diagram: 11/30/17 0446 11/30/17 0446 Imaging Last Impressions Carotid Artery Ultrasound 11/27/17 0000 Signed Impressions: CONCLUSION: 1. Right Internal Carotid Artery: Within normal limits for age. 2. Left Internal Carotid Artery: Within normal limits for age. Hip X-Ray 11/25/17 1621 Signed Impressions: CONCLUSION: Satisfactory postoperative appearance status post left hip replacement. Head CT 11/24/17 014 Signed Impressions: CONCLUSION: 1. No acute intracranial findings. 2. Diffuse atrophy and chronic ischemic change. Chest X-Ray 11/24/17 014 Signed Impressions: CONCLUSION: No acute cardiopulmonary disease identified. Cervical Spine CT 11/24/17 014 Signed Impressions: CONCLUSION: 1. No evidence of fracture. 2. Prominent multilevel degenerative findings. Hip and Pelvis X-Ray 11/24/17 0000 Signed Impressions: CONCLUSION: Impacted left femoral neck fracture. Objective Remarks GENERAL: Well-nourished, well-developed elderly female patient in [facility]. SKIN: Warm and dry. No rash. HEENT: Normocephalic. Atraumatic. Pupils equal and round. Mucous membranes pink and moist. NECK: Supple. Trachea midline. CARDIOVASCULAR: Regular rate and rhythm. No murmur appreciated. RESPIRATORY: No accessory muscle use. Clear to auscultation. Breath sounds equal bilaterally. GASTROINTESTINAL: Abdomen soft, mildly distended, and mild diffuse tenderness to palpation. Normoactive bowel sounds x4. MUSCULOSKELETAL: No obvious deformities. Extremities without clubbing, cyanosis , or edema. Left hip surgical dressing, CDI. NEUROLOGICAL: Awake and alert. No obvious cranial nerve deficits. Motor grossly within normal limits. Moving all extremities spontaneously. Normal speech. Procedures Nov 25, 2017 - Left hip bipolar replacement arthroplasty by Dr Harrison Horowitz Medications and IVs Current Medications Medications (Trade) Dose Ordered Sig/Louisa Route Start Time Stop Time Status Last Admin (NS Flush) 2 ml UNSCH PRN IV FLUSH 11/24/17 03:00 (NS Flush) 2 ml BID IV FLUSH 11/24/17 09:00 11/30/17 08:25 (Tylenol) 650 mg Q4H PRN PO 11/24/17 03:00 11/26/17 08:46 (Zofran Odt) 4 mg Q6H PRN PO 11/24/17 03:00 11/26/17 10:36 (Narcan Inj) 0.4 mg UNSCH PRN IV PUSH 11/24/17 03:00 (Anne-Colace) 1 tab BID PO 11/24/17 09:00 11/27/17 20:36 (Milk Of Magnesia Liq) 30 ml Q12H PRN PO 11/24/17 03:00 (Senokot) 17.2 mg Q12H PRN PO 11/24/17 03:00 (Dulcolax Supp) 10 mg DAILY PRN RECTAL 11/24/17 03:00 (Lactulose Liq) 30 ml DAILY PRN PO 11/24/17 03:00 (Lopressor) 25 mg BID PO 11/24/17 09:00 11/30/17 08:25 (Morphine Inj) 2 mg Q4H PRN IM 11/24/17 08:15 (Miralax) 17 gm DAILY PO 11/26/17 09:00 11/27/17 08:53 Lactated Ringer's 1,000 ml @ 80 mls/hr [id number] IV 11/25/17 17:00 11/25/17 17:00 (Morphine Inj) 5 mg Q2H PRN IM 11/25/17 16:30 ([place] 10-325 Mg) 1 tab Q4H PRN PO 11/25/17 16:30 ([place] 10-325 Mg) 2 tab Q6H PRN PO 11/25/17 16:30 (Mag-Al Plus Susp Liq) 30 ml Q6H PRN PO 11/25/17 16:30 (Restoril) 15 mg HS PRN PO 11/25/17 16:30 (Milk Of Magnesia Liq) 30 ml BID PO 11/25/17 21:00 11/27/17 20:36 (Senokot) 17.2 mg HS PO 11/25/17 21:00 11/27/17 20:36 (Benadryl) 25 mg Q6H PRN PO 11/25/17 16:30 (Coumadin) SEE PROTOCOL DAILY@1600 PO 11/26/17 16:00 11/30/17 16:54 (Tylenol) 500 mg Q6H PRN PO 11/26/17 07:45 (Synthroid) 88 mcg DAILY@0600 PO 11/29/17 06:00 11/30/17 06:05 Pharmacy Profile Note 0 ml @ 0 mls/hr UNSCH OTHER 11/28/17 14:15 (Pravachol) 40 mg HS PO 11/30/17 21:00 (Proamatine) 2.5 mg TID@07,12,17 PO 11/29/17 17:00 11/30/17 16:54 (Pill Splitter) 1 ea UNSCH PRN OTHER 11/29/17 16:30 11/30/17 06:05 A/P Problem List: (1) Fracture of left femur ICD Code: S72.92XA - Unspecified fracture of left femur, initial encounter for closed fracture Status: Acute (2) HTN (hypertension) ICD Code: I10 - Essential (primary) hypertension Status: Chronic (3) Hypothyroidism ICD Code: E03.9 - Hypothyroidism, unspecified Assessment and Plan 87-year-old female with past medical history of atrial fibrillation on Coumadin , hypothyroidism, HTN, HLD who came into the hospital status post slip and fall coming out of the bathroom. Status post slip and fall Left femoral neck fracture -s/p Left hip bipolar replacement on 11/[address] Horowitz -PT consulted, PT recommendations from ortho: progress to full WB, posterior hip precautions -Per orthopedic team, ok to coumadin w INR goal to be less than 2.2 for 2 weeks. -Head CT showed no acute intracranial findings, diffuse atrophy and chronic change -Cervical spine CT negative for fracture, prominent multilevel degenerative finding -s/p FFP transfusion 2 units given for sx -Pain management for now with bowel regimen -PT evaluation postop, recommending PT at rehab vs [facility] PT, will monitor improvement Recurrent Syncope: patient suffered syncopal episode post op, also had recurrent syncope today 11/30 upon standing -Cardiology consulted, suspecting orthostatic hypotension is most likely the culprit. -Orthostatic precautions in place. -Pt unable to work w PT due to this therefore started on midodrine 2.5mg po TID and hopefully this will control her symptoms. -Mik macdonald ordered -Carotid u/s negative for stenosis. -Echo with EF 55-60%, trace to mild MR, mild to mod TR -Continue to monitor orthostatics daily -Monitor on telemetry Atrial fibrillation: chronic, rate controlled -Anticoagulated on Coumadin -INR goal for the next 2 weeks is to try to keep it 2.0-2.2 per Ortho recs, then normal goal of 2.0-3.0 -pharmacy consulted to assist with coumadin dosing HTN/HLD -Continue home medication with hold parameters, metoprolol, lovastatin Hypothyroidism -Continue levothyroxine Acute Constipation: suspect exacerbated by surgery/hospitalization/pain medications -Might get exacerbated secondary to anesthesia and pain medication -The patient has been receiving MOM, Miralax, and Anne-Colace bid -OF NOTE, although patient complaining of constipation, RN reports the patient is confused, and has actually had 5 large BMs today -Will continue to monitor BMs for now DVT Prophylaxis: on Coumadin Discharge Planning Discharge pending improvement of orthostatic hypotension. Likely would benefit from rehab placement. Problem Qualifiers (1) HTN (hypertension): Qualified Codes: I10 - Essential (primary) hypertension Rosalie Peña PA-C Nov 30, 2017 17:43
[2017-11-30] MEDS ORDERED: POLYETHYLENE GLYCOL 17 GM PKG PO ONE (18:00)
[2017-11-30] MEDS: SENNOSIDES 8.6 MG TAB PO SCH (21:35)
[2017-11-30] MEDS: PRAVASTATIN SOD 40 MG TAB PO SCH (21:35)
[2017-12-01] VITALS (10 sets, daily range): BP systolic 121–148; BP diastolic 65–86; PULSE 75–111; RESP 17–18; TEMP 97.5–98.4; O2SAT 93–99
[2017-12-01] MEDS: MIDODRINE 5 MG TAB PO SCH ×3 (06:15→17:08)
[2017-12-01] MEDS: LEVOTHYROXINE SODIUM 88 MCG TAB PO SCH (06:15)
[2017-12-01] MEDS: DOCUSATE SODIUM 50 MG/SENNA 8.6 MG TAB PO SCH (08:24)
[2017-12-01] MEDS: MAGNESIUM HYDROXIDE SUSP 30 ML CUP PO SCH (08:24)
[2017-12-01] MEDS: SODIUM CHLORIDE 0.9% FLUSH 10 ML FLUSH IV FLUSH SCH ×2 (08:26→20:44)
[2017-12-01] MEDS: METOPROLOL TARTRATE 25 MG TAB PO SCH ×2 (08:26→20:44)
[2017-12-01] MEDS: LACTATED RINGER'S 1000 ML INJ 1,000 ML IV SCH ×2 (08:29→23:00)
[2017-12-01] MEDS ORDERED: POLYETHYLENE GLYCOL 17 GM PKG PO SCH (09:00)
[2017-12-01 09:14] LABS: INTERNATIONAL NORMALIZED RATIO 2.4 RATIO; PROTHROMBIN TIME - PATIENT 24.4 SEC (9.8-11.6)
[2017-12-01] MEDS ORDERED: SODIUM CHLORID 0.9% 500 ML INJ 500 ML IV ONE (09:45)
[2017-12-01] MEDS ORDERED: DOCUSATE SODIUM 50 MG/SENNA 8.6 MG TAB PO PRN (09:45)
--- NOTE | 2017-12-01 09:53 | HHI.PR ---
Subjective Remarks Patient states that her blood pressure dropped when they got her up. She did not feel dizzy at that point. She has not gotten up since then. She denies any pain at this point. She had 5 loose stools overnight per nursing staff. She states that she is drinking and eating without any difficulty. Objective Vitals Vital Signs Date Time Temp Pulse Resp B/P (MAP) Pulse Ox O2 Delivery O2 Flow Rate FiO2 12/01/17 04:55 98.4 92 17 148/73 (98) 98 12/01/17 04:00 92 12/01/17 00:00 100 11/30/17 23:15 98.1 85 17 118/64 (82) 96 11/30/17 20:43 94 11/30/17 20:10 Room Air 11/30/17 20:00 97.8 97 18 146/76 (99) 99 11/30/17 16:00 98.4 94 18 140/72 (94) 99 11/30/17 15:38 85 11/30/17 13:45 80 11/30/17 12:35 117/74 (88) 11/30/17 12:30 132/81 (98) 11/30/17 12:30 118/63 (81) 11/30/17 12:00 98.6 87 18 130/71 (90) 98 11/30/17 12:00 98.6 87 18 130/71 (90) 98 I/O 11/30/17 11/30/17 11/30/17 12/01/17 12/01/17 12/01/17 07:00 15:00 23:00 07:00 15:00 23:00 Intake Total 360 ml 740 ml 360 ml Balance 360 ml 740 ml 360 ml Intake Oral 360 ml 640 ml 360 ml IV Total 100 ml # Voids 3 5 1 12 # Bowel Movements 4 1 5 Result Diagram: 11/30/17 0446 11/30/17 0446 Other Results Item Value Date Time Prothromb Time International Ratio 2.4 RATIO 12/01/17 0801 Objective Remarks GENERAL: This is a well-nourished, well-developed patient, in no apparent distress. CARDIOVASCULAR: Regular rate and rhythm RESPIRATORY: Clear to auscultation. Breath sounds equal bilaterally. No wheezes , rales, or rhonchi. GASTROINTESTINAL: Abdomen soft, non-tender, nondistended. Normal active bowel sounds MUSCULOSKELETAL: Extremities without clubbing, cyanosis, or edema. NEURO: Alert & Oriented x3 to person, place, time. Moves all ext x4 Procedures Nov 25, 2017 - Left hip bipolar replacement arthroplasty by Dr Harrison Horowitz A/P Problem List: (1) Fracture of left femur ICD Code: S72.92XA - Unspecified fracture of left femur, initial encounter for closed fracture Status: Acute (2) HTN (hypertension) ICD Code: I10 - Essential (primary) hypertension Status: Chronic (3) Hypothyroidism ICD Code: E03.9 - Hypothyroidism, unspecified Status: Chronic Assessment and Plan 87-year-old female with past medical history of atrial fibrillation on Coumadin , hypothyroidism, HTN, HLD who came into the hospital status post slip and fall coming out of the bathroom. Status post slip and fall Left femoral neck fracture -s/p Left hip bipolar replacement on 11/[address] Horowitz, currently postoperative day #6 -PT consulted, PT recommendations from ortho: progress to full WB, posterior hip precautions -Per orthopedic team, ok to coumadin w INR goal to be less than 2.2 for 2 weeks. -Head CT showed no acute intracranial findings, diffuse atrophy and chronic change -Cervical spine CT negative for fracture, prominent multilevel degenerative finding -s/p FFP transfusion 2 units given prior to surgery -Pain management for now with bowel regimen -PT evaluation postop, recommending PT at rehab vs [facility] PT, will monitor improvement Recurrent Syncope: patient suffered syncopal episode post op, also had recurrent syncope yesterday upon standing -Cardiology consulted, suspecting orthostatic hypotension is most likely the culprit. -Orthostatic precautions in place. -Pt unable to work w PT due to this therefore started on midodrine 2.5mg po TID and hopefully this will control her symptoms. -Mik hose ordered Will initiate IV fluid hydration and stop scheduled stool softeners as patient has had loose stools overnight. -Carotid u/s negative for stenosis. -Echo with EF 55-60%, trace to mild MR, mild to mod TR -Continue to monitor orthostatics daily -Monitor on telemetry Atrial fibrillation: chronic, rate controlled and currently normal sinus rhythm -Anticoagulated on Coumadin -INR goal for the next 2 weeks is to try to keep it 2.0-2.2 per Ortho recs, then normal goal of 2.0-3.0 -pharmacy consulted to assist with coumadin dosing HTN/HLD, chronic essential -Continue home medication with hold parameters, metoprolol, lovastatin Hypothyroidism, chronic -Continue levothyroxine Acute Constipation: suspect exacerbated by surgery/hospitalization/pain medications and this is resolved. Due to patient's multiple loose stools today and overnight will discontinue scheduled stool softeners due to her underlying orthostatic hypotension and actually give IV fluid hydration. Continue as needed Anne-Colace and MiraLAX. DVT prophylaxis Coumadin Discharge Planning To rehab in the morning if orthostatic blood pressures improve Problem Qualifiers (1) Fracture of left femur: (2) HTN (hypertension): Qualified Codes: I10 - Essential (primary) hypertension Ade Ochoa MD Dec 01, 2017 09:53
[2017-12-01] MEDS ORDERED: ACETAMINOPHEN 500 MG CPLT PO PRN (10:00)
[2017-12-01] MEDS: WARFARIN SOD 2.5 MG TAB PO SCH (15:27)
[2017-12-01] MEDS: PRAVASTATIN SOD 40 MG TAB PO SCH (20:43)
[2017-12-01] MEDS: SENNOSIDES 8.6 MG TAB PO SCH (20:44)
[2017-12-02] VITALS (7 sets, daily range): BP systolic 113–154; BP diastolic 68–95; PULSE 86–105; RESP 17–18; TEMP 97.2–98.7; O2SAT 95–99
[2017-12-02] MEDS: LEVOTHYROXINE SODIUM 88 MCG TAB PO SCH (06:00)
[2017-12-02] MEDS: MIDODRINE 5 MG TAB PO SCH ×2 (06:00→11:52)
[2017-12-02 07:34] LABS: INTERNATIONAL NORMALIZED RATIO 2.4 RATIO; PROTHROMBIN TIME - PATIENT 24.4 SEC (9.8-11.6)
[2017-12-02] MEDS: SODIUM CHLORIDE 0.9% FLUSH 10 ML FLUSH IV FLUSH SCH (07:45)
[2017-12-02] MEDS: METOPROLOL TARTRATE 25 MG TAB PO SCH (07:48)
[2017-12-02] MEDS ORDERED: SENN187 PO (10:58)
[2017-12-02] MEDS ORDERED: MIDO5TAB PO (10:58)
[2017-12-02] MEDS ORDERED: LEVO100T5 PO (10:58)
[2017-12-02] MEDS ORDERED: MAGN30S PO (10:58)
[2017-12-02] MEDS ORDERED: ACET500T13 PO (10:58)
[2017-12-02] MEDS ORDERED: METO25TA3 PO (10:58)
--- NOTE | 2017-12-02 11:01 | HHI.DS ---
Discharge Summary Admission Date Nov 24, 2017 at 03:01 Discharge Date: Dec 02, 2017 Admitting Diagnosis Left hip fracture s/p slip and fall (1) Fracture of left femur ICD Code: S72.92XA - Unspecified fracture of left femur, initial encounter for closed fracture Status: Acute (2) HTN (hypertension) ICD Code: I10 - Essential (primary) hypertension Status: Chronic (3) Hypothyroidism ICD Code: E03.9 - Hypothyroidism, unspecified Status: Chronic Procedures Nov 25, 2017 - Left hip bipolar replacement arthroplasty by Dr Harrison Horowitz Brief History - From Admission Patient is an 87-year-old female with past medical history of atrial fibrillation on Coumadin, hypothyroidism, HTN, HLD who came into the hospital status post slip and fall coming out of the bathroom. Patient denies hitting her head, or any loss of consciousness. Patient found to have impacted left femoral neck fracture on the x-ray. Patient is due for OR procedure, however her INR is elevated at 2.7. Patient seen and examined today. Reports she is doing well. States she has no pain or discomfort. She does not even know that she had a fracture. States that there was something wrong with her blood that she needs to be rescheduled for the procedure tomorrow. Denies SOB/ dyspnea. Denies chest pain, palpitations, headaches, dizziness. Denies fevers, chills, n/v/d. Denies hematuria, dysuria. CBC/BMP: 11/30/17 0446 11/30/17 0446 Significant Findings Laboratory Tests Test 11/30/17 04:46 12/01/17 08:01 12/02/17 07:02 Red Blood Count 3.25 MIL/MM3 (4.00-5.30) Hemoglobin 10.4 GM/DL (11.6-15.3) Hematocrit 30.9 % (35.0-46.0) Monocytes (%) (Auto) 11.0 % (0.0-8.0) Eosinophils (%) (Auto) 4.5 % (0.0-4.0) Prothrombin Time 21.5 SEC (9.8-11.6) 24.4 SEC (9.8-11.6) 24.4 SEC (9.8-11.6) Random Glucose 112 MG/DL (74-106) Calcium Level 8.1 MG/DL (8.5-10.1) Chloride Level 108 MEQ/L (98-107) Estimat Glomerular Filtration Rate 86 ML/MIN (>89) Imaging Last Impressions Carotid Artery Ultrasound 11/27/17 0000 Signed Impressions: CONCLUSION: 1. Right Internal Carotid Artery: Within normal limits for age. 2. Left Internal Carotid Artery: Within normal limits for age. Hip X-Ray 11/25/17 1621 Signed Impressions: CONCLUSION: Satisfactory postoperative appearance status post left hip replacement. Head CT 11/24/17 0143 Signed Impressions: CONCLUSION: 1. No acute intracranial findings. 2. Diffuse atrophy and chronic ischemic change. Chest X-Ray 11/24/17 0143 Signed Impressions: CONCLUSION: No acute cardiopulmonary disease identified. Cervical Spine CT 11/24/17 0143 Signed Impressions: CONCLUSION: 1. No evidence of fracture. 2. Prominent multilevel degenerative findings. Hip and Pelvis X-Ray 11/24/17 0000 Signed Impressions: CONCLUSION: Impacted left femoral neck fracture. PE at Discharge GENERAL: This is a well-nourished, well-developed patient, in no apparent distress. CARDIOVASCULAR: Regular rate and rhythm RESPIRATORY: Clear to auscultation. Breath sounds equal bilaterally. No wheezes , rales, or rhonchi. GASTROINTESTINAL: Abdomen soft, non-tender, nondistended. Normal active bowel sounds MUSCULOSKELETAL: Extremities without clubbing, cyanosis, or edema. NEURO: Alert & Oriented x3 to person, place, time. Moves all ext x4 Pt update on day of discharge Patient states that she had a nightmare last night otherwise she is not complaining of any pain Hospital Course These are the medical issues addressed during this hospitalization: 87-year-old female with past medical history of atrial fibrillation on Coumadin , hypothyroidism, HTN, HLD who came into the hospital status post slip and fall coming out of the bathroom. Status post slip and fall Left femoral neck fracture -s/p Left hip bipolar replacement on 11/[address] Horowitz -PT consulted, PT recommendations from ortho: progress to full WB, posterior hip precautions -Per orthopedic team, ok to coumadin w INR goal to be less than 2.2 for 2 weeks. -Head CT showed no acute intracranial findings, diffuse atrophy and chronic change -Cervical spine CT negative for fracture, prominent multilevel degenerative finding -s/p FFP transfusion 2 units given prior to surgery due to patient being on Coumadin previously -Pain management for now with bowel regimen -PT evaluation postop, recommending PT at rehab vs [facility] PT, will monitor improvement Recurrent Syncope: patient suffered syncopal episode post op, also had recurrent syncope yesterday upon standing -Cardiology consulted, suspecting orthostatic hypotension is most likely the culprit. -Orthostatic precautions in place. -Pt unable to work w PT due to this therefore started on midodrine 2.5mg po TID and improved blood pressure -Mik hose ordered Will initiate IV fluid hydration and stop scheduled stool softeners as patient has had loose stools overnight on 11/30 -Carotid u/s negative for stenosis. -Echo with EF 55-60%, trace to mild MR, mild to mod TR -Continue to monitor orthostatics daily -Monitor on telemetry Atrial fibrillation: chronic, rate controlled and currently normal sinus rhythm -Anticoagulated on Coumadin -INR goal for the next 2 weeks is to try to keep it 2.0-2.2 per Ortho recs, then normal goal of 2.0-3.0 -pharmacy consulted to assist with coumadin dosing HTN/HLD, chronic essential -Continue home medication with hold parameters, metoprolol, lovastatin Hypothyroidism, chronic -Continue levothyroxine Acute Constipation: suspect exacerbated by surgery/hospitalization/pain medications and this is resolved. Due to patient's multiple loose stools during the hospitalization, discontinue scheduled stool softeners due to her underlying orthostatic hypotension and actually give IV fluid hydration. Continue as needed Anne-Colace and MiraLAX. DVT prophylaxis Coumadin At this time, patient's orthostatic hypotension has resolved and she has gained maximum benefit from hospitalization and ready to be discharged to [facility] facility. Pt Condition on Discharge: Good Discharge Disposition: Discharge to SNF Discharge Time: <= 30 minutes Discharge Instructions DIET: Follow Instructions for: Heart Healthy Diet Activities you can perform: Weight Bearing as Peri Follow up Referrals: Orthopedics - 2 Weeks with Harrison Horowitz MD New Medications: Acetaminophen (APAP Extra Strength) 500 Mg Tab 500 MG PO Q4H PRN for pain 1 TO 10, #20 TAB Magnesium Hydroxide (Qc Milk of Magnesia) 400 Mg/5 Ml Ghazal 30 ML PO Q12H PRN for Mild constipation, #10 ML Midodrine (Midodrine) 5 Mg Tab 2.5 MG PO TID@07,12,17 for keep BP up, #21 TAB Sennosides (Senna-Lax) 8.6 Mg Tab 17.2 MG PO HS for Prevent Constipation, #20 TAB Changed Medications: Metoprolol Tartrate (Metoprolol Tartrate) 25 Mg Tab 12.5 MG PO BID for Regulate Heart Beat, #60 TAB 0 Refills (Changed from: 25 MG) Continued Medications: Levothyroxine (Levothyroxine) 100 Mcg Tab 100 MCG PO DAILY for Thyroid, #30 TAB 0 Refills (This prescription has been renewed) Lovastatin (Lovastatin) 40 Mg Tab 40 MG PO DAILY for Cholesterol Management, #30 TAB 0 Refills Warfarin (Coumadin) 2.5 Mg Tab 2.5 MG PO DAILY for Prevent Blood Clot, #30 TAB 0 Refills Ade Ochoa MD Dec 02, 2017 11:01
[2017-12-02] MEDS: LACTATED RINGER'S 1000 ML INJ 1,000 ML IV SCH (11:30)
[2017-12-02] MEDS: WARFARIN SOD 2.5 MG TAB PO SCH (15:45)
== END 2017-12-02 16:08 | DRG 470 ==
LOC: NEPE 01:25 → NEDA 03:01 → UNDOADMIN 03:08 → NEDA 03:08 → NEPGCP 04:50 → N06B 06:52 → NEPGCP 07:21 → N06A 13:04
PROVIDERS: ADMIT Family Medicine; ATTEND Family Medicine
PROC: 30233K1 Transfusion of Nonautologous Frozen Plasma into Peripheral Vein, Percutaneous Approach (ICD-10-PCS; 2017-11-24)
PROC: 0SRS0JZ Replacement of Left Hip Joint, Femoral Surface with Synthetic Substitute, Open Approach (ICD-10-PCS; principal; 2017-11-25 14:58)
DX: S72.012A Unspecified intracapsular fracture of left femur, initial encounter for closed fracture (principal); I48.2 Chronic atrial fibrillation; R50.9 Fever, unspecified; I10 Essential (primary) hypertension; E78.5 Hyperlipidemia, unspecified; E03.9 Hypothyroidism, unspecified; M81.0 Age-related osteoporosis without current pathological fracture; I95.1 Orthostatic hypotension; E87.6 Hypokalemia; N28.9 Disorder of kidney and ureter, unspecified; K59.09 Other constipation; R00.0 Tachycardia, unspecified; H91.90 Unspecified hearing loss, unspecified ear; W01.0XXA Fall on same level from slipping, tripping and stumbling without subsequent striking against object, initial encounter; Z79.01 Long term (current) use of anticoagulants; Z88.2 Allergy status to sulfonamides
CPT/HCPCS: 36430; 70450; 71045; 72125; 73502; 80048; 80053; 81001; 82550; 83036; 83735; 84100; 84439; 84443; 84484; 85014; 85018; 85025; 85027; 85610; 85730; 86900; 86901; 86927; 93005; 93306; 93880; 94150; C1776; J0131; J0690; J0696; J1100; J1580; J2175; J2270; J2370; J2405; J2710; J2765; J3010; J3370; J3480; J7030; J7040; J7050; J7120; P9017